=== PATIENT | female | born 1960 | race Caucasian/White ===

== ENCOUNTER → 2016-05-03 | Outpatient (CLI) | payer BC ==
--- NOTE | 2016-05-03 19:01 | P.BASOAP ---
Subjective Principal diagnosis: Panniculitis Patient is well-known to our service. She underwent prior weight loss surgery by myself. She was last seen 6 months ago. She has had excellent weight loss. She is having trouble now with inflammatory changes beneath the pannus. She currently is using Gold Mcintyre with some relief. She has significant itching. She is still smoking. She was seeing me for possible panniculectomy. Objective - Vital Signs Vital signs: Vital Signs Temp 98.2 F 05/03/16 13:47 Pulse 76 05/03/16 13:47 Resp 16 05/03/16 13:47 BP 119/76 05/03/16 13:47 Pulse Ox Intake & Output 05/02/16 05/03/16 05/03/16 18:59 06:59 18:59 Weight 72.15 kg - Exam Abdomen: Small to moderate-sized pannus noted, some skin irritation with erythema without ulceration present Assessment/Plan (1) Panniculitis Narrative/Plan: The patient was informed that I do not perform panniculectomy. She and I discussed the indications for surgery the associated risks. Contact numbers were provided for both plastic surgery and general surgery to discuss this further. She will continue to work on her smoking cessation. She will continue goal Mcintyre for now. Plan: Date: 05/03/16 Initial Weight: 108.862 kg Initial BMI: 38.7 Current Weight: 72.15 kg Current BMI: 25.7 Type of Surgery: Total Volume in Band: Previous Volume: Volume Removed: Volume Added: Band Size:
== END | disposition home or self-care (01) ==
CPT/HCPCS: 99211

== ENCOUNTER → 2018-05-22 | Outpatient (CLI) | payer BC ==
--- NOTE | 2018-05-22 16:07 | BD ---
EXAMINATION TYPE: Axial Bone Density DATE OF EXAM: 05/22/2018 COMPARISON: NONE CLINICAL HISTORY: Height: 5 FT 5 1/2 IN Weight: 163 FRAX RISK QUESTIONS: History of Fracture in Adulthood: YES Secondary Osteoporosis: 3. Menopause before 45: ABLASION AGE 42 NO SYMPTOMS Current Tobacco Use: YES RISK FACTORS HISTORY OF: History of Wrist Fracture: RT WRIST When: 8 YRS AGO Surgery to Spine/Hip(right/left)/Wrist (right/left): RT WRIST When: 8 YRS AGO Active: YES Postmenopausal woman: ABLASION AGE 42 MEDICATIONS: Osteoporosis Medications: YES Which medication: RECLAST How Lon YRS Additional Medications: RECLAST,VALACYCLOVIR,OXCARBAZEPINE,BIOTIN, CALTRATE Additional History: BARIATRIC SURG 5 YEARS AGO EXAM MEASUREMENTS: Bone mineral densitometry was performed using the Nimaya System. Bone mineral density as measured about the Lumbar spine is: ----- L1-L4(G/cm2): 1.217 T Score Values are as follows: ----- L2: -0.1 ----- L3: 1.6 ----- L4: 0.1 ----- L1-L4: 0.3 BASELINE Bone mineral density about the R hip (g/cm2): 0.817 Bone mineral density about the L hip (g/cm2): 0.835 T Score values are as follows: -----R Neck: -1.6 -----L Neck: -1.5 -----R Total: -1.4 -----L Total: -1.2 BASELINE IMPRESSION: Osteopenia (T Score between -2.5 and -1). There is slightly increased risk of fracture and the patient may be considered for treatment. Re-Screen 2-5 years. NOTE: T-SCORE=SD OF THE YOUNG ADULT MEAN.
--- NOTE | 2018-05-23 10:09 | MM ---
Reason for exam: screening (asymptomatic). Last mammogram was performed 9 years and 1 month ago. History: Family history of breast cancer in 2 aunts. Took hormonal contraceptives for 10 years. Physical Findings: A clinical breast exam by your physician is recommended on an annual basis and results should be correlated with mammographic findings. MG 3D Screening Mammo W/Cad Bilateral CC and MLO view(s) were taken. Prior study comparison: November 01, 2015, mammogram, performed at [facility]. July 06, 2014, mammogram, performed at [facility]. May 04, 2009, bilateral digital screening mammogram. July 16, 2007, bilateral digital screening mammogram. There are scattered fibroglandular densities. Stable benign calcifications. There is no discrete abnormality. No significant changes when compared with prior studies. ASSESSMENT: Benign, BI-RAD 2 RECOMMENDATION: Routine screening mammogram of both breasts in 1 year.
== END ==
LOC: RADMAMWWP 08:42
PROVIDERS: ATTEND Family Medicine
DX: Z12.31 Encounter for screening mammogram for malignant neoplasm of breast (principal); M85.80 Other specified disorders of bone density and structure, unspecified site
CPT/HCPCS: 77063; 77067; 77080

== ENCOUNTER → 2018-11-06 | Outpatient (CLI) | payer BC ==
[~2018-11-06] MED LIST: SODIUM CHLORIDE 0.9% 500 ML 500 ML in EMPTY BAG 1 BAG IV PRN; ZOLEDRONIC ACID 5 MG in SODIUM CHLORIDE 0.9% 100 ML IV NR
[2018-11-06 08:27] VITALS: BP 95/57; PULSE 80; RESP 16; TEMP 98
== END | disposition home or self-care (01) ==
LOC: PROCWHC3 07:55
PROVIDERS: ATTEND Family Medicine
DX: M81.0 Age-related osteoporosis without current pathological fracture (principal)
CPT/HCPCS: 96365; J3489

== ENCOUNTER → 2019-06-03 | Outpatient (CLI) | payer BC ==
[2019-06-03 13:30] VITALS: BP 125/86; PULSE 85; TEMP 97.9; BMI 25.8
--- NOTE | 2019-06-03 13:40 | P.HPBAR ---
Bariatric H&P - History & Physicial H&P Date: 06/03/19 History & Physicial: Visit/CC: panniculectomy consult Patient initial contact: Initial weight: 108.862 kg Initial weight in pounds: 240.00 Height: 5 ft 6 in Initial BMI: 38.7 Last weight: Current weight: 72.711 kg Current weight in pounds: 160.30 Current BMI: 25.8 Stuart body weight (based on NIH guidelines): 58.967 kg Excess body weight loss: 72.4% The patient is a 58 year-old F who presents for Bariatric Assessment. HPI: Highest wegiht of 268 pounds. She is status post sleeve gastrectomy in 2014. She is 5 years. She reports panniculitis worse in the summer time. She cannot wear pants as a result of her pannus. She has chronic itching of her skin of the pannus. She reports occassional back pain from her pannus. She uses Gold gandara to try to help her symptoms. She has not seen a noc analyst. Her lowest weight was 138 pounds was 4 years. No oral medications for her skin. She was prescribed creams for her skin. She reports 4 years of chronic panniculitis. She reports epigastric pain for 3 months. ABDOMEN: Pannus over 5 cm over the pubis. Hyperpigmentation of the her skin pannus reviewed. ASSESSMENT: 1. Panniculitis PLAN: 1. Recommend Nystatin powder 2. Systems Software Engineer 3. Nicotine testing recommend 4. Upper endoscopy 5. Bariatric labs Past Medical History Past Medical History: GERD/Reflux Additional Past Medical History / Comment(s): FX RT HUMERUS-12/31/14 History of Any Multi-Drug Resistant Organisms: None Reported Past Surgical History: Bariatric Surgery, Bladder Surgery, Section, Cholecystectomy, Orthopedic Surgery, Tonsillectomy, Tubal Ligation, Uterine Ablation Additional Past Surgical History / Comment(s): GASTRIC SLEEVE 03/2014. ORIF RT WRIST AND ANDLE W/PINS AND SCREWS. BLADDER SLING. FATTY BENIGN TUMOR REMOVED FROM BACK. COLONOSCOPY. EGD Past Anesthesia/Blood Transfusion Reactions: Motion Sickness, Postoperative Nausea & Vomiting (PONV) Smoking Status: Current every day smoker - Past Family History Mother Family Medical History: No Reported History Surgical - Exam Vital Signs Temp Pulse BP 97.9 F 85 125/86 06/03/19 13:26 06/03/19 13:26 06/03/19 13:26 Bariatric Checklist Checklist: Plan: Checklist: EGD: 1. Hiatal hernia: 2. H. Pylori: HgbA1c: Vitamin D: Smoking: Current every day smoker Primary care physician referral: SARITA Psychiatry clearance: Cardiology clearance: Sleep study: Diet journal: VTE risk score: VTE risk level: Rehab needs at discharge:
== END | disposition home or self-care (01) ==
LOC: BARWHC3 12:39
PROVIDERS: ATTEND Surgery Plastic and Reconstructive Surgery
DX: Z48.815 Encounter for surgical aftercare following surgery on the digestive system (principal); M79.3 Panniculitis, unspecified; R10.13 Epigastric pain; F17.200 Nicotine dependence, unspecified, uncomplicated; Z98.84 Bariatric surgery status; Z90.49 Acquired absence of other specified parts of digestive tract; Z98.51 Tubal ligation status; Z98.890 Other specified postprocedural states
CPT/HCPCS: 99211

== ENCOUNTER → 2019-06-29 | Outpatient (CLI) | payer BC ==
--- NOTE | 2019-06-30 10:35 | MM ---
Reason for exam: screening (asymptomatic). Last mammogram was performed 1 year and 1 month ago. History: Family history of breast cancer in 2 aunts. Took hormonal contraceptives for 10 years. Physical Findings: A clinical breast exam by your physician is recommended on an annual basis and results should be correlated with mammographic findings. MG 3D Screening Mammo W/Cad Bilateral CC and MLO view(s) were taken. Prior study comparison: May 22, 2018, bilateral MG 3d screening mammo w/cad. November 01, 2015, mammogram, performed at [facility]. There are scattered fibroglandular densities. There are benign appearing round calcifications bilaterally. There is chronic nodularity bilaterally. There is no discrete abnormality. ASSESSMENT: Benign, BI-RAD 2 RECOMMENDATION: Routine screening mammogram of both breasts in 1 year.
== END | disposition home or self-care (01) ==
LOC: RADMAMWWP 12:30
PROVIDERS: ATTEND Family Medicine
DX: Z12.31 Encounter for screening mammogram for malignant neoplasm of breast (principal)
CPT/HCPCS: 77063; 77067

== ENCOUNTER → 2019-10-14 | Outpatient (CLI) | payer BC ==
[2019-10-14 11:32] LABS: HCT 39.8 % (34.0-46.0); HGB 13.7 gm/dL (11.4-16.0); MCH 34.4 pg (25.0-35.0); MCHC 34.5 g/dL (31.0-37.0); MCV 99.7 fL (80.0-100.0); Mean Platelet Volume 7.3; Platelet Count 242 k/uL (150-450); RBC 3.99 m/uL (3.80-5.40); RDW 11.7 % (11.5-15.5); WBC 3.5 k/uL (3.8-10.6)
[2019-10-14 11:44] LABS: Partial Thromboplastin Time 22.3 sec (22.0-30.0); Prothrombin Time 10.2 sec (9.0-12.0)
[2019-10-14 18:12] LABS: Hemoglobin A1C 5.3 % (4.0-6.0)
[2019-10-14 20:38] LABS: % Iron Saturation 31.53 (12.00-45.00); African American GFR (CKD) 117.3 (60.0-200.0); Albumin 4.3 g/dL (3.80-4.90); Albumin/Globulin Ratio 2.53 (1.60-3.17); Anion Gap 8.9 mmol/L (4.00-12.00); Calcium 9.1 mg/dL (8.7-10.3); Carbon Dioxide 27.1 mmol/L (21.6-31.8); Chol/HDL Ratio 2.4; Globulin 1.7 g/dL (1.6-3.3); LDL Cholesterol,Calculated 94.8 mg/dL (0.0-131.0); Magnesium 1.9 mg/dL (1.5-2.4); Non-African American GFR(CKD) 101.2 (60.0-200.0); Potassium 4.4 mmol/L (3.5-5.5); Total Bilirubin 0.4 mg/dL (0.3-1.2); VLDL Calculation 14.2 mg/dL (5.00-40.00)
[2019-10-14 20:46] LABS: Ferritin 49.2 ng/mL (10.0-291.0)
[2019-10-14 21:03] LABS: Folate, Serum 19.8 ng/mL
[2019-10-15 11:44] LABS: Zinc, Serum 76 ug/dL (60-130)
[2019-10-16 07:27] LABS: Vitamin A 58 ug/dL (38-106)
[2019-10-16 08:00] LABS: Vit B1(Thiamine) 63 ug/L (38-122)
[2019-10-16 16:04] LABS: Anabasine Urine <2.0 ng/mL (<2.0)
[2019-10-17 01:28] LABS: Selenium 88 mcg/L (63-160)
== END | disposition home or self-care (01) ==
LOC: LABWHC1 10:25
PROVIDERS: ATTEND Surgery Plastic and Reconstructive Surgery
DX: E21.1 Secondary hyperparathyroidism, not elsewhere classified (principal); E89.1 Postprocedural hypoinsulinemia; D50.9 Iron deficiency anemia, unspecified; K90.9 Intestinal malabsorption, unspecified; E55.9 Vitamin D deficiency, unspecified; K74.1 Hepatic sclerosis; N19 Unspecified kidney failure; K50.90 Crohn's disease, unspecified, without complications; E66.01 Morbid (severe) obesity due to excess calories
CPT/HCPCS: 36415; 80053; 80061; 80323; 82306; 82525; 82607; 82728; 82746; 83036; 83540; 83550; 83735; 83970; 84100; 84134; 84255; 84425; 84443; 84590; 84630; 85027; 85610; 85730; 93005

== ENCOUNTER → 2019-11-05 | Outpatient (CLI) | payer BC ==
--- NOTE | 2019-11-05 15:05 | US ---
EXAMINATION TYPE: US kidneys/renal and bladder DATE OF EXAM: 11/05/2019 COMPARISON: NONE CLINICAL HISTORY: N30.20Cystitis. uti's this years EXAM MEASUREMENTS: Right Kidney: 8.4 x 4.2 x 3.9cm Left Kidney: 9.2 x 3.9 x 6.1cm Right Kidney: No hydronephrosis or masses seen Left Kidney: No hydronephrosis or masses seen Bladder: wnl Bilateral Jets seen: no There is no evidence for hydronephrosis at this point in time. No nephrolithiasis is seen. No vangie s are identified. The urinary bladder is anechoic. IMPRESSION: Ureteral jets were not evident. Urinary bladder not well distended.
== END | disposition home or self-care (01) ==
LOC: RADUSWWP 14:37
PROVIDERS: ATTEND Urology
DX: N30.20 Other chronic cystitis without hematuria (principal); Z88.5 Allergy status to narcotic agent; Z91.041 Radiographic dye allergy status
CPT/HCPCS: 76770

== ENCOUNTER → 2019-11-19 | Outpatient (CLI) | payer BC ==
--- NOTE | 2019-11-19 12:38 | FL ---
Barium swallow HISTORY: Dysphagia Patient was given high density barium to drink. Swallowing mechanism is normal. There is no evident aspiration. There is no extrinsic or intrinsic es ophageal lesion. Some tertiary esophageal contractions were noted incidentally. Patient shows postop change status post gastric sleeve. There is redundancy of the distal esophagus, redundant distal esop hagus or portion of the stomach remnant may be present within hiatal hernia, there is no obstruction to flow, is no leak. 45 seconds fluoroscopy time, 143 images obtained IMPRESSION: There is a redundant appearance, probable hiatal hernia with portion of the stomach withi n the lower chest. CT scan may be of benefit for further evaluation.
== END | disposition home or self-care (01) ==
LOC: RADUSWWP 10:52
PROVIDERS: ATTEND Surgery Plastic and Reconstructive Surgery
DX: R93.3 Abnormal findings on diagnostic imaging of other parts of digestive tract (principal); R13.10 Dysphagia, unspecified
CPT/HCPCS: 74220

== ENCOUNTER → 2019-12-09 | Outpatient (CLI) | payer BC ==
--- NOTE | 2019-12-09 15:57 | CT ---
EXAMINATION TYPE: CT chest abdomen w con DATE OF EXAM: 12/09/2019 COMPARISON: None. HISTORY: Pt c/o burning sensation when swallowing. Bariatric sx 6 years ago. Diverticulitis. Ins only approved abdomen CT DLP: 796 mGycm. Automated Exposure Control for Dose Reduction was Utilized. CONTRAST: CT scan of the thorax and abdomen are performed with oral and with IV Contrast, patient injected with 100 mL of Isovue 300. FINDINGS: LUNGS: The lungs are grossly clear, there is no concerning parenchymal mass or nodule identified. T here is no pleural effusion or pneumothorax seen. The tracheobronchial tree is patent. MEDIASTINUM: There are no greater than 1 cm hilar or mediastinal lymph nodes. No cardiomegaly or pe ricardial effusion is seen. LIVER/GB: Cholecystectomy clips are present. PANCREAS: No significant abnormality is seen. SPLEEN: No significant abnormality is seen. ADRENALS: No significant abnormality is seen. KIDNEYS: No significant abnormality is seen. BOWEL: Oral contrast does not reach colonic level. Surgical changes from gastric sleeve are identifie d. There is hiatal hernia containing the gastric sleeve along with mesenteric fat and tiny mesenteric vessels with abnormal twisting of the sleeve noted. Surgical sutures extend below diaphragm into the upper abdomen. No suspicious small or large bowel dilatation is present. In the region of the second portion of duodenum there is heterogeneous rim-enhancing 2.2 x 1.8 cm ovoid lesion coronal image 40 that appears maybe in the pancreaticoduodenal groove worrisome for abnormal mass or adenopathy. Mass effect on the common bile duct which is deviated centrally is seen. No biliary dilatation noted. Mild prominence of colonic fecal material is present LYMPH NODES: No additional greater than 1 cm abdominal lymph nodes are appreciated. OSSEOUS STRUCTURES: Slight underlying scoliotic curvature OTHER: No significant additional abnormality is seen. IMPRESSION: 1. Suspicious oval 2.2 cm rim enhancing or hyperdense solid mass in the pancreaticoduodenal groove. Consider hypervascular adenopathy or neoplasm. Correlate clinically. 2. Hiatal hernia containing majority of gastric sleeve which is abnormally twisted but shows no evide nce of obstruction. Mild diffuse colonic fecal stasis noted.
== END | disposition home or self-care (01) ==
LOC: RADCTMAIN 14:30
PROVIDERS: ATTEND Surgery Plastic and Reconstructive Surgery
DX: K86.89 Other specified diseases of pancreas (principal); K44.9 Diaphragmatic hernia without obstruction or gangrene; K59.8 Other specified functional intestinal disorders; R91.8 Other nonspecific abnormal finding of lung field; Z87.891 Personal history of nicotine dependence
CPT/HCPCS: 71260; 74160; Q9967

== ENCOUNTER 2020-01-25 06:08 | Inpatient (IN) | payer BC ==
--- NOTE | 2020-01-25 03:46 | P.GSHP ---
History of Present Illness H&P Date: 01/25/20 CHIEF COMPLAINT: Paraesophageal hiatal hernia with gastroesophageal reflux disease. HISTORY OF PRESENT ILLNESS: The patient is a 59-year-old female who presents severe gastroesophageal reflux disease with paraesophageal hiatal hernia. She has completed upper endoscopy workup. Now she presents for surgical intervention. PAST MEDICAL HISTORY: Please see list. PAST SURGICAL HISTORY: Please see list. MEDICATIONS: Please see list. ALLERGIES: Please see list. SOCIAL HISTORY: No illicit drug use FAMILY HISTORY: No reports of Crohn disease or ulcerative colitis. REVIEW OF ORGAN SYSTEMS: CONSTITUTIONAL: No reports of fevers or chills. GI: Denies any blood in stools or constipation. PHYSICAL EXAM: VITAL SIGNS: Stable GENERAL: Well-developed pleasant and in no acute distress. HEENT: No scleral icterus. Extraocular movements grossly intact. Moist buccal mucosa. NECK: Supple without lymphadenopathy. CHEST: Unlabored respirations. Equal bilateral excursions. CARDIOVASCULAR: Regular rate and rhythm. Distal 2+ pulses. ABDOMEN: Soft, nondistended. No peritoneal signs. MUSCULOSKELETAL: No clubbing, cyanosis, or edema. SKIN: Well-perfused. Good skin turgor. ASSESSMENT: 1. Diaphragmatic paraesophageal hiatal hernia with severe gastroesophageal reflux disease. PLAN: 1. Recommend proceeding with a robotic paraesophageal hiatal hernia with possible mesh. 2. Benefits and risks of surgical intervention was discussed including possibility of open technique. 3. Inpatient hospitalization recommended of 2 nights 4. DVT prophylaxis. 5. Antibiotic prophylaxis. Past Medical History Past Medical History: GERD/Reflux Additional Past Medical History / Comment(s): FX RT HUMERUS-12/31/14 History of Any Multi-Drug Resistant Organisms: None Reported Past Surgical History: Bariatric Surgery, Bladder Surgery, Section, Cholecystectomy, Orthopedic Surgery, Tonsillectomy, Tubal Ligation, Uterine Ablation Additional Past Surgical History / Comment(s): GASTRIC SLEEVE, ORIF RT WRIST AND ANKLE W/PINS AND SCREWS. BLADDER SLING, FATTY BENIGN TUMOR REMOVED FROM BACK, EGD, colonocopy Past Anesthesia/Blood Transfusion Reactions: Motion Sickness, Postoperative Nausea & Vomiting (PONV) Past Psychological History: Bipolar Smoking Status: Former smoker Past Alcohol Use History: Occasional Additional Past Alcohol Use History / Comment(s): QUIT SMOKING 12/2019, smoked on and off for 44 years Past Drug Use History: None Reported Additional Drug Use History / Comment(s): occ CBD oil - Past Family History Mother Family Medical History: No Reported History Medications and Allergies Home Medications Medication Instructions Recorded Confirmed Type Biotin 5,000 mg PO TID 01/06/15 01/20/20 History Calcium Carbonate/Vitamin D3 1 tab PO DAILY 01/06/15 01/20/20 History [Calcium 600-Vit D3 400 Tablet] Cholecalciferol [Vitamin D3 (25 5,000 unit PO DAILY 01/06/15 01/20/20 History Mcg = 1000 Iu)] Multivitamins, Thera [Multivitamin 1 each PO DAILY 01/06/15 01/20/20 History (formulary)] valACYclovir HCL [Valacyclovir] 500 mg PO DAILY 01/06/15 01/20/20 History Polyethylene Glycol 3350 [Miralax] 17 gm PO DAILY PRN #527 gm 12/16/19 01/20/20 Rx Albuterol Sulfate [Ventolin HFA] 1 - 2 puff INHALATION DIRECTED 01/20/20 01/20/20 History PRN Cannabidiol (Cbd) [Epidiolex] 0 mg PO DIRECTED 01/20/20 01/20/20 History Nystatin 100,000 Unit/gm Powd 1 applic TOPICAL BID PRN 01/20/20 01/20/20 History [Mycostatin Powder] OXcarbazepine [Trileptal] 300 mg PO BID 01/20/20 01/20/20 History Omeprazole [PriLOSEC] 20 mg PO AC-BRKFST 01/20/20 01/20/20 History Vitamin B(Dose Unknown) 1 tab PO TU 01/20/20 01/20/20 History Allergies Allergy/AdvReac Type Severity Reaction Status Date / Time hydrocodone [From Badger] AdvReac Rapid Verified 01/20/20 08:46 Heart Rate orange AdvReac Rash/Hives Verified 01/20/20 08:46 ORANGE DYE AdvReac BLISTERS Uncoded 01/12/20 09:37 TO INSIDE AND OUTSIDE OF MOUTH
[~2020-01-25 06:08] MED LIST changes: +CHLORHEXIDINE GLUCONATE 15 ML CUP MUCOUS MEM ONE; +HYDROmorphone 0.5 MG/0.5 ML SYRINGE IVP PRN; +LACTATED RINGERS 1,000 ML IV SCH; +LIDOCAINE 1% (10MG/ML) FOR IV START INTRADERMA PRN; +MIDAZOLAM 2 MG/2 ML VIAL IV PRN; +PANTOPRAZOLE 40 MG/10 ML VIAL IV ONE; -SODIUM CHLORIDE 0.9% 500 ML 500 ML in EMPTY BAG 1 BAG IV PRN; -ZOLEDRONIC ACID 5 MG in SODIUM CHLORIDE 0.9% 100 ML IV NR
[2020-01-25] MEDS ORDERED: DEXAMETHASONE SOD PHOSPHATE 10 MG/ML 1 ML VIAL IV ONE (07:00)
[2020-01-25] MEDS ORDERED: ONDANSETRON 4 MG/2 ML VIAL ONE (07:07)
[2020-01-25 07:13] LABS: Basophils % (A) 1 %; Eosinophils # (A) 0.2 k/uL (0-0.7); Eosinophils % (A) 5 %; HCT 43.7 % (34.0-46.0); HGB 14.6 gm/dL (11.4-16.0); Lymphocytes # (A) 1.3 k/uL (1.0-4.8); Lymphocytes % (A) 40 %; MCH 32.1 pg (25.0-35.0); MCHC 33.5 g/dL (31.0-37.0); Mean Platelet Volume 7.2; Monocytes # (A) 0.3 k/uL (0-1.0); Monocytes % (A) 8 %; Neutrophils # (A) 1.4 k/uL (1.3-7.7); Neutrophils % (A) 43 %; Platelet Count 281 k/uL (150-450); RBC 4.55 m/uL (3.80-5.40); RDW 11.7 % (11.5-15.5); WBC 3.3 k/uL (3.8-10.6)
[2020-01-25] MEDS ORDERED: SUCCINYLCHOLINE CHLORIDE 100 MG/5 ML SYR IV ONE (07:25)
[2020-01-25] MEDS ORDERED: WATER FOR INJECTION, STERILE 10 ML VIAL IV ONE (07:25)
[2020-01-25] MEDS ORDERED: fentaNYL (PF) 50 MCG/ML 2 ML AMP ONE (07:25)
[2020-01-25] MEDS ORDERED: LIDOCAINE 1% INJ 10MG/ML (20 ML MDV) ONE (07:25)
[2020-01-25] MEDS ORDERED: NEOSTIGMINE 1 MG/ML 10 ML VIAL ONE (07:25)
[2020-01-25] MEDS ORDERED: GLYCOPYRROLATE 0.2 MG/ML 2 ML VIAL ONE (07:25)
[2020-01-25] MEDS ORDERED: PHENYLEPHRINE-0.9% NACL SYG 1 MG/10 ML SYRINGE ONE (07:25)
[2020-01-25] MEDS ORDERED: MIDAZOLAM 2 MG/2 ML VIAL ONE (07:25)
[2020-01-25] MEDS ORDERED: ePHEDrine SULFATE/0.9% NACL/PF 50 MG/5 ML SYRINGE IV ONE (07:25)
[2020-01-25] MEDS ORDERED: PROPOFOL 10 MG/ML 20 ML VIAL IV ONE (07:25)
[2020-01-25] MEDS ORDERED: ROCURONIUM 10 MG/ML (5 ML VIAL) IV ONE (07:25)
[2020-01-25] MEDS ORDERED: SCOPOLAMINE 1.5MG/72HR PATCH TRANSDERM ONE (07:30)
[2020-01-25 07:31] LABS: ALT 16 U/L (4-34); AST 42 U/L (14-36); African American GFR (CKD) >90 (>60 ml/min/1.73 sqM); Albumin 4.4 g/dL (3.5-5.0); Alkaline Phosphatase 96 U/L (38-126); Anion Gap 7 mmol/L; Blood Urea Nitrogen 20 mg/dL (7-17); Calcium 9.5 mg/dL (8.4-10.2); Carbon Dioxide 23 mmol/L (22-30); Chloride 103 mmol/L (98-107); Glucose 94 mg/dL (74-99); Non-African American GFR(CKD) >90 (>60 ml/min/1.73 sqM); Sodium 133 mmol/L (137-145); Total Bilirubin 1.1 mg/dL (0.2-1.3); Total Protein 6.9 g/dL (6.3-8.2)
[2020-01-25 07:34] LABS: Potassium 5.1 mmol/L (3.5-5.1)
[2020-01-25] MEDS ORDERED: LIDOCAINE 1%-EPI 1:100,000 20 ML VIAL SQ ONE (08:00)
[2020-01-25] MEDS ORDERED: LACTATED RINGERS 1,000 ML IV ONE (09:04)
[2020-01-25] MEDS ORDERED: ONDANSETRON 4 MG/2 ML VIAL IVP ONE (10:17)
[2020-01-25] MEDS ORDERED: NALOXONE 0.4 MG/ML 1 ML VIAL IV PRN (10:21)
[2020-01-25] MEDS ORDERED: PROMETHAZINE INJ 25 MG/ML 1 ML VIAL IVPB ONE (10:42)
[2020-01-25] MEDS ORDERED: DEXAMETHASONE SOD PHOSPHATE 10 MG/ML 1 ML VIAL IV PRN (11:00)
--- NOTE | 2020-01-25 11:08 | P.OP ---
Date of Procedure: 01/25/20 Description of Procedure: SURGEON: JOEL العلي MD PREOPERATIVE DIAGNOSES: 1. Gastroesophageal reflux disease, severe 2. Paraesophageal hiatal hernia, midline 3. History of sleeve gastrectomy 4. Epigastric abdominal pain 5. Dysphagia 6. Bipolar disorder POSTOPERATIVE DIAGNOSES: 1. Paraesophageal hiatal hernia, midline, incarcerated and recurrent, 7 x 5 cm, type III, with obstruction and gastric volvulus 2. Gastroesophageal reflux disease, severe 3. History of sleeve gastrectomy 4. Epigastric abdominal pain 5. Dysphagia 6. Bipolar disorder 7. Peritoneal adhesions OPERATION: 1. Robotic-assisted da Xiao Xi laparoscopic reduction of gastric volvulus and repair of recurrent incarcerated paraesophageal hiatal hernia, 7 x 5 cm, with [place] Biopatch A 8 x 8 cm. 2. Robotic-assisted da Xiao Xi laparoscopic extensive lysis of adhesions over 1 hour 3. Intraoperative esophagogastroscopy 4. Placement of 56-Chinese bougie ANESTHESIA: General with local anesthetic. ESTIMATED BLOOD LOSS: 5 mL Pathology: None COMPLICATIONS: None. FINDINGS: 1. Thoracic length 15 cm. 2. Port placed 15 cm distal. 3. Incarcerated upper pole of the stomach within the mediastinum with moderate dissection performed with resection of mediastinal hernia sac, type III paraesophageal hiatal hernia 4. 7 cm paraesophageal incarcerated diaphragmatic hiatal hernia with gastric Follis in obstruction 5. [place] Biopatch A onlay mesh placed. 6. Identified previous hiatal hernia repair with retained suture consistent with recurrent incarcerated hiatal hernia 7. Reduction of incarcerated 9 cm superior pole of stomach from previously gastrectomy 8. Confirmed pre-existing gastric stenosis along sleeve gastrectomy and angularis incisura 9. GE junction at 39 cm from the incisors 10. Intra-abdominal esophageal length over 2 cm obtained INDICATIONS: The patient is a 59-year-old female who presents with epigastric abdominal pain, history of sleeve gastrectomy and severe gastroesophageal reflux recalcitrant to medical therapy with a symptomatic diaphragmatic hiatal hernia. Preoperative workup including upper endoscopy demonstrated hiatal hernia with incarceration and gastric volvulus. Given the severity of her symptoms, she had elected for surgical intervention. Benefits and risks including bleeding, infection, recurrence, dysphagia, injury to the lung, need for further surgery was described at length. Informed consent was obtained. DESCRIPTION: The patient was brought into the operating room and placed in supine position. Preoperatively she had received Lovenox subcutaneously for DVT prophylaxis. After general induction, the abdomen was prepped and draped in standard sterile fashion. The patient had previously voided prior to coming to the operating room. Ioban draping was placed along the abdomen. A timeout protocol was confirmed with the surgical team, for which the patient's name, procedure to be performed including DVT prophylaxis with bilateral SCDs, and preoperative antibiotics were also confirmed. A robotic da Xiao Xi system was prepped and primed. At 15 cm from the xiphoid to just below the umbilicus, proposed port sites were marked with indelible marker along the left axillary line, left mid-clavicular line with each ports were marked 10 cm from each other. A 5 mm 0 degrees laparoscopic trocar entry was performed along the left upper quadrant. The abdomen was insufflated to 15 mmHg pressure was tolerated well. Diagnostic l aparoscopy demonstrated no injury to bowel, viscera. Next, one 8 mm robotic port was placed along the right upper abdomen. An 8-mm port was were placed along the left lateral abdominal wall. The camera 8-mm port was maintained along the epigastrium. Another 12 mm port was placed along the left upper abdominal wall after exchanging the 5 mm port. Please note that the ports were placed at least 20 cm away from the target anatomy. Care was taken to check that each robotic arm were safely away from collision with the bed or the patient. The patient was repositioned in reverse Trendelenburg position at 21-degrees after lowering the bed. The robot was docked above the right side of the patient. Using a grasper for arm 3, a grasper for arm 1, including vessel sealer for arm 2, the robotic system was docked and primed as described. Instruments were interchanged by the educational program assistant. I had sat at the console. Initial attention was brought to the severe peritoneal adhesions involving the greater omentum to the anterior abdominal wall of the epigastrium including midline and right including left upper quadrant. Using combination blunt dissection including vessel sealer for sharp dissection, extensive lysis of adhesions over 1 hour was performed from her previous hiatal hernia repair. Dissection was carried to the hiatus circumferentially using vessel sealer including blunt dissection. Previous retained suture was found along the hiatus consistent with a prior repair. The hiatus hernia recurred anteriorly including a retained sac acting as a lead point for recurrence. To prevent any injury to the esophagus including proximal stomach, I performed an intraoperative upper endoscopy with the scope entering along the posterior oropharynx into the distal stomach and left in place as a bougie. The remnant gastrohepatic ligament was cleaved using a vessel sealer. Next, the phrenoesophageal ligament was mobilized and the distal esophagus was mobilized circumferentially. An incarcerated hernia sac was found into the mediastinum. As a result, deep dissection well into the mediastinum was needed to free the proximal sleeve gastrectomy including distal esophagus consistent with a type III hiatal hernia with a gastric volvulus. The left and right crura was identified. Significant mobilization of the distal to mid esophagus into the mediastinum was performed. Circumferentially, the hernia sac was excised and brought into the abdominal cavity. Care was taken to avoid any gastrotomy to the incarcerated upper pole of the stomach. The measured defect was measured with a ruler consistent with 7 cm axial length and 5 cm in width. After extensive dissection, the distal esophagus at least 2-3 cm was brought into the abdominal cavity. Once the hiatus and crura was dissected, nonabsorbable 2-0 VLOC suture was placed as a running suture to re-approximate the diaphragmatic hiatus posteriorly. To buttress the repair, a [place] Biopatch A was prepared along the back table and cut in a rosenberg-hole fashion as to reinforce the repair as an underlay. The mesh was resized posteriorly placed along the crural repair and tagged using 2-0 VLOC. I went to the head of the bed to perform intraoperative esophagogastroduodenoscopy. An Olympus gastroscope was passed through posterior oropharynx, where the squamocolumnar junction was confirmed at 39 cm from the incisors. The hiatus repair was confirmed as laparoscopic images. The stomach was entered. A confirmed pre-existing gastric stenosis was found at the angularis incisura. The duodenum was intubated without duodenal or peptic ulcers. The scope was temporarily removed and a 56-Chinese bougie was placed to confirm appropriate seal of the hiatal hernia repair. The bougie was left for 1 minute and then removed. The scope was reintroduced within the stomach without evidence of injury. The stomach had been desufflated. No evidence of leaks were found or mucosal defects of the esophagus or stomach. This concluded the endoscopic portion of the case. The robot was undocked from the patient. I re-scrubbed into the case. All instruments and pneumoperitoneum were evacuated from the abdominal cavity. The incisions were cleansed with dilute hydrogen peroxide with saline solution. Incisions were reapproximated using 4-0 Monocryl in an interrupted subcuticular fashion. The 12-mm port site fascial defect was less than 8 mm in size. Exofin glue was applied to the skin. Local anesthetic was infiltrated in all wounds for postop analgesia. Multiple intra-abdominal films were obtained. At the end of the procedure, needle, sponge, and instrument count was verified correct by the surgical scrub tech. The patient had tolerated the procedure well and was taken to the postanesthesia unit in stable condition. Intraoperative films were reviewed with the patient's family who were pleased with the level of care. Console time: 80 minutes COMPLEXITY: Increased complexity of the case secondary to recurrent diaphragmatic hiatal hernia including large leak point with gastric volvulus into the mediastinum requiring extensive lysis of adhesions and reduction of gastric volvulus with obstruction.
[2020-01-25] MEDS: 0.9% NACL WITH KCL 20 MEQ/L 1,000 ML IV SCH ×3 (11:55→18:48)
[2020-01-25] MEDS: KETOROLAC 15 MG/ML 1 ML VIAL IVP SCH ×2 (11:56→17:35)
[2020-01-25] MEDS ORDERED: METOCLOPRAMIDE 5 MG/ML 2 ML VIAL IVP SCH (12:00)
[2020-01-25] MEDS ORDERED: ACETAMINOPHEN IV (For NPO) 1,000 MG in EMPTY BAG 1 BAG IVPB ONE (12:00)
[2020-01-25] MEDS: HYOSCYAMINE ORAL DROPS 1.875 MG/15 ML BOTTLE PO SCH ×2 (12:09→17:34)
[2020-01-25] MEDS: SIMETHICONE 40 MG/0.6 ML DROPS 2,000 MG/30 ML BOTTLE PO SCH ×2 (12:12→18:26)
[2020-01-25] MEDS: ALBUTEROL NEBULIZED 2.5 MG/3 ML INHALATION SCH ×3 (13:20→21:37)
[2020-01-25 14:59] VITALS: BMI 26.9
[2020-01-25] MEDS: ONDANSETRON 4 MG/2 ML VIAL IVP SCH ×2 (16:07→22:02)
[2020-01-25] MEDS: DEXAMETHASONE SOD PHOSPHATE 4 MG/ML 1 ML VIAL IV SCH (17:40)
[2020-01-25] MEDS: OXcarbazepine 300 MG TAB PO SCH (20:09)
[2020-01-26] MEDS: KETOROLAC 15 MG/ML 1 ML VIAL IVP SCH ×5 (00:08→23:31)
[2020-01-26] MEDS: SIMETHICONE 40 MG/0.6 ML DROPS 2,000 MG/30 ML BOTTLE PO SCH ×5 (00:08→23:32)
[2020-01-26] MEDS: HYOSCYAMINE ORAL DROPS 1.875 MG/15 ML BOTTLE PO SCH ×5 (00:08→23:31)
[2020-01-26] MEDS: DEXAMETHASONE SOD PHOSPHATE 4 MG/ML 1 ML VIAL IV SCH ×5 (00:08→23:31)
[2020-01-26] MEDS: ONDANSETRON 4 MG/2 ML VIAL IVP SCH ×4 (04:30→21:50)
[2020-01-26 06:34] LABS: Basophils % (A) 0 %; Eosinophils % (A) 0 %; HCT 38.5 % (34.0-46.0); Lymphocytes # (A) 0.7 k/uL (1.0-4.8); Lymphocytes % (A) 12 %; MCH 33.9 pg (25.0-35.0); MCHC 33.9 g/dL (31.0-37.0); MCV 100.2 fL (80.0-100.0); Mean Platelet Volume 6.9; Monocytes # (A) 0.2 k/uL (0-1.0); Monocytes % (A) 4 %; Neutrophils # (A) 4.9 k/uL (1.3-7.7); Neutrophils % (A) 84 %; Platelet Count 239 k/uL (150-450); RBC 3.84 m/uL (3.80-5.40); RDW 11.8 % (11.5-15.5); WBC 5.8 k/uL (3.8-10.6)
[2020-01-26] MEDS: 0.9% NACL WITH KCL 20 MEQ/L 1,000 ML IV SCH ×2 (06:36→15:36)
[2020-01-26 06:43] LABS: Potassium 4.3 mmol/L (3.5-5.1)
[2020-01-26 06:44] LABS: African American GFR (CKD) >90 (>60 ml/min/1.73 sqM); Anion Gap 4 mmol/L; Blood Urea Nitrogen 8 mg/dL (7-17); Calcium 8.5 mg/dL (8.4-10.2); Carbon Dioxide 26 mmol/L (22-30); Chloride 104 mmol/L (98-107); Magnesium 1.7 mg/dL (1.6-2.3); Non-African American GFR(CKD) >90 (>60 ml/min/1.73 sqM); Phosphorus 3.9 mg/dL (2.5-4.5); Sodium 134 mmol/L (137-145)
[2020-01-26 07:06] LABS: Partial Thromboplastin Time 21.9 sec (22.0-30.0); Prothrombin Time 10.2 sec (9.0-12.0)
[2020-01-26] MEDS: ALBUTEROL NEBULIZED 2.5 MG/3 ML INHALATION SCH ×4 (08:11→20:53)
[2020-01-26] MEDS: PANTOPRAZOLE 40 MG/10 ML VIAL IV SCH (09:47)
[2020-01-26] MEDS: ENOXAPARIN 40 MG/0.4 ML SYRINGE SQ SCH (09:48)
[2020-01-26] MEDS: OXcarbazepine 300 MG TAB PO SCH ×2 (09:50→21:51)
--- NOTE | 2020-01-26 09:58 | FL ---
EXAMINATION TYPE: FL UGI DATE OF EXAM: 01/26/2020 COMPARISON: None HISTORY: Postop hiatal hernia repair TECHNIQUE: A single contrast UGI study is performed with Isovue. FINDINGS: 54 seconds fluoroscopy time 25 mL Isovue Images: 35 Small amount of free air is under the diaphragm. Gastroesophageal junction opens with only minimal hesitancy. No extravasation of contrast is evident. Post gastric sleeve findings appear unremarkable. Proximal small bowel is unremarkable. IMPRESSIONS: 1. No extravasation of contrast post Munir fundoplication. 2. Mild hesitancy passing through the gastroesophageal junction.
--- NOTE | 2020-01-26 13:15 | P.PN ---
Subjective Progress Note Date: 01/26/20 CHIEF COMPLAINT: Paraesophageal hiatal hernia HISTORY OF PRESENT ILLNESS: Patient is postop day #1 status post Robotic- assisted da Xiao Xi laparoscopic reduction of gastric volvulus and repair of recurrent incarcerated paraesophageal hiatal hernia and extensive lysis of adhesions. Patient reports very minimal pain. She denies any nausea or vomiting. She had her upper GI showing no extravasation of contrast and mild hesitancy passing through the gastroesophageal junction. Patient is currently on a bariatric clear diet. She does report feeling that the liquids to seem to get stuck but are able to pass through. She has been up and ambulating. She is using her incentive spirometer. She denies any flatus. She is afebrile. WBC 5.8 hemoglobin is 13. Magnesium 1.7 PHYSICAL EXAM: VITAL SIGNS: Reviewed GENERAL: Well-developed in no acute distress. HEENT: No sclera icterus. Extraocular movements grossly intact. Moist buccal mucosa. Head is atraumatic, normocephalic. Hears conversational speech. No nasal drainage. NECK: Supple without lymphadenopathy. CHEST: Non-labored respirations and equal bilateral excursions. CARDIOVASCULAR: Regular rate with regular rhythm. Palpable 2+ radial pulses. ABDOMEN: Soft. Nondistended. Incisions clean dry and intact MUSCULOSKELETAL: No clubbing or cyanosis. NEUROLOGIC: No focal or lateralizing signs. Cranial nerves II through XII maya ssly intact. PSYCH: Appropriate affect. Alert and oriented to person, place and time. SKIN: Well perfused. Good skin turgor. ASSESSMENT: 1. Paraesophageal hiatal hernia, midline, incarcerated and recurrent, 7 x 5 cm, type III, with obstruction and gastric volvulus 2. Gastroesophageal reflux disease, severe 3. History of sleeve gastrectomy 4. Epigastric abdominal pain 5. Dysphagia 6. Bipolar disorder 7. Peritoneal adhesions 8. Hypomagnesemia PLAN: -Continue bariatric clear diet -Continue IV fluids -Replace magnesium and replete magnesium level in a.m. -Continue pain control medication -GI prophylaxis Protonix and DVT prophylaxis Lovenox Physician Prospect Manager note has been reviewed by physician. Signing provider agrees with the documented findings, assessment, and plan of care. Objective - Vital Signs Vital signs: Vital Signs Temp 98.3 F 01/26/20 12:14 Pulse 91 01/26/20 12:14 Resp 16 01/26/20 12:14 BP 111/74 01/26/20 12:14 Pulse Ox 99 01/26/20 12:14 Intake & Output 01/25/20 01/26/20 01/26/20 18:59 06:59 18:59 Intake Total 1999 1160 Output Total 5 Balance 1994 116 Weight 75.5 kg Intake: IV 1999 Oral 1160 Output: Estimated Blood Loss 5 Other: Voiding Method Toilet # Voids 1 1 1 - Labs CBC & Chem 7: 01/26/20 05:55 01/26/20 05:55 Labs: Abnormal Lab Results - Last 24 Hours (Table) 01/26/20 01/26/20 01/26/20 Range/Units 05:55 05:55 05:55 MCV 100.2 H (80.0-100.0) fL Lymphocytes # 0.7 L (1.0-4.8) k/uL APTT 21.9 L (22.0-30.0) sec Sodium 134 L (137-145) mmol/L
[2020-01-26] MEDS ORDERED: MAGNESIUM SULFATE-D5W PMX 1 GM in DEXTROSE/WATER 1 100ML.BAG IVPB ONE (14:00)
[2020-01-26] MEDS ORDERED: SUMAtriptan succinate 6 MG/0.5 ML VIAL SQ STA (21:09)
[2020-01-26] MEDS ORDERED: ACETAMINOPHEN IV (For NPO) 1,000 MG in EMPTY BAG 1 BAG IVPB ONE (21:09)
[2020-01-26] MEDS ORDERED: SODIUM CHLORIDE 0.9% 1,000 ML IV ONE (21:09)
[2020-01-26] MEDS ORDERED: BUTA/APAP/CAF/COD 50-325-40-30 CAP PO STA (21:10)
[2020-01-27] MEDS: ONDANSETRON 4 MG/2 ML VIAL IVP SCH ×2 (03:38→10:10)
[2020-01-27] MEDS: SIMETHICONE 40 MG/0.6 ML DROPS 2,000 MG/30 ML BOTTLE PO SCH ×2 (06:47→12:16)
[2020-01-27] MEDS: DEXAMETHASONE SOD PHOSPHATE 4 MG/ML 1 ML VIAL IV SCH ×2 (06:47→12:28)
[2020-01-27] MEDS: KETOROLAC 15 MG/ML 1 ML VIAL IVP SCH (06:47)
[2020-01-27] MEDS: HYOSCYAMINE ORAL DROPS 1.875 MG/15 ML BOTTLE PO SCH ×2 (06:47→12:15)
[2020-01-27] MEDS: 0.9% NACL WITH KCL 20 MEQ/L 1,000 ML IV SCH (06:48)
[2020-01-27] MEDS: ALBUTEROL NEBULIZED 2.5 MG/3 ML INHALATION SCH ×2 (08:14→11:33)
[2020-01-27] MEDS: ENOXAPARIN 40 MG/0.4 ML SYRINGE SQ SCH (08:41)
[2020-01-27] MEDS: PANTOPRAZOLE 40 MG/10 ML VIAL IV SCH (08:44)
[2020-01-27] MEDS: OXcarbazepine 300 MG TAB PO SCH (08:50)
[2020-01-27 09:05] VITALS: BP 109/70; PULSE 97; TEMP 97.7
[2020-01-27 10:41] VITALS: RESP 20
--- NOTE | 2020-01-27 13:42 | P.DS ---
Providers Date of admission: 01/25/20 06:08 Expected date of discharge: 01/27/20 Attending physician: Lalitha Washington Primary care physician: Vasile Agar[facility]omen[facility] Course: Discharge diagnosis 1. Paraesophageal hiatal hernia, midline, incarcerated and recurrent, 7 x 5 cm, type III, with obstruction and gastric volvulus 2. Gastroesophageal reflux disease, severe 3. History of sleeve gastrectomy 4. Epigastric abdominal pain 5. Dysphagia 6. Bipolar disorder 7. Peritoneal adhesions 8. Hypomagnesemia resolved Hospital course he patient is a 59-year-old female who presents severe gastroesophageal reflux disease with paraesophageal hiatal hernia. She is status post status post Robotic-assisted da Xiao Xi laparoscopic reduction of gastric volvulus and repair of recurrent incarcerated paraesophageal hiatal hernia and extensive lysis of adhesions and intraoperative esophagogastroscopy. Patient had upper GI completed showing no extravasation and mild hesitancy passing through the gastroesophageal junction. Patient is tolerating diet. She denies any nausea or vomiting. She is passing gas. She has been up and ambulating. And she is afebrile. Patient is stable for discharge. Please refer to chart for any further details. Physician Digital Retoucher note has been reviewed by physician. Signing provider agrees with the documented findings, assessment, and plan of care. Patient Condition at Discharge: Stable Plan - Discharge Summary Discharge Rx Participant: Yes New Discharge Prescriptions: New bisacodyL [Dulcolax] 5 mg PO DAILY PRN #10 tablet. PRN Reason: Constipation Simethicone 40 mg/0.6 ml Drops [Mylicon Drops] 40 mg PO PCHS PRN #30 ml PRN Reason: Gas Ondansetron Odt [Zofran Odt] 4 mg PO Q8HR PRN #9 tab PRN Reason: Nausea Acetaminophen Oral Susp [Tylenol] 1,000 mg PO Q4-6H PRN #400 ml PRN Reason: Pain Continue Cholecalciferol [Vitamin D3 (25 Mcg = 1000 Iu)] 5,000 unit PO DAILY valACYclovir HCL [Valacyclovir] 500 mg PO DAILY Multivitamins, Thera [Multivitamin (formulary)] 1 each PO DAILY Calcium Carbonate/Vitamin D3 [Calcium 600-Vit D3 400 Tablet] 1 tab PO DAILY Biotin 5,000 mg PO TID Polyethylene Glycol 3350 [Miralax] 17 gm PO DAILY PRN #527 gm PRN Reason: Constipation Nystatin 100,000 Unit/gm Powd [Mycostatin Powder] 1 applic TOPICAL BID PRN PRN Reason: Rash Albuterol Sulfate [Ventolin HFA] 1 - 2 puff INHALATION DIRECTED PRN PRN Reason: Shortness Of Breath Cannabidiol (Cbd) [Epidiolex] 0 mg PO DIRECTED Vitamin B(Dose Unknown) 1 tab PO OXcarbazepine [Trileptal] 300 mg PO BID Discontinued Omeprazole [PriLOSEC] 20 mg PO AC-BRKFST Discharge Medication List Biotin 5,000 mg PO TID 01/06/15 [History] Calcium Carbonate/Vitamin D3 [Calcium 600-Vit D3 400 Tablet] 1 tab PO DAILY 01/06/15 [History] Cholecalciferol [Vitamin D3 (25 Mcg = 1000 Iu)] 5,000 unit PO DAILY 01/06/15 [History] Multivitamins, Thera [Multivitamin (formulary)] 1 each PO DAILY 01/06/15 [History] valACYclovir HCL [Valacyclovir] 500 mg PO DAILY 01/06/15 [History] Polyethylene Glycol 3350 [Miralax] 17 gm PO DAILY PRN #527 gm 12/16/19 [Rx] Albuterol Sulfate [Ventolin HFA] 1 - 2 puff INHALATION DIRECTED PRN 01/20/20 [History] Cannabidiol (Cbd) [Epidiolex] 0 mg PO DIRECTED 01/20/20 [History] Nystatin 100,000 Unit/gm Powd [Mycostatin Powder] 1 applic TOPICAL BID PRN 01/20/20 [History] OXcarbazepine [Trileptal] 300 mg PO BID 01/20/20 [History] Vitamin B(Dose Unknown) 1 tab PO TU 01/20/20 [History] Acetaminophen Oral Susp [Tylenol] 1,000 mg PO Q4-6H PRN #400 ml 01/27/20 [Rx] Ondansetron Odt [Zofran Odt] 4 mg PO Q8HR PRN #9 tab 01/27/20 [Rx] Simethicone 40 mg/0.6 ml Drops [Mylicon Drops] 40 mg PO PCHS PRN #30 ml 01/27/20 [Rx] bisacodyL [Dulcolax] 5 mg PO DAILY PRN #10 tablet. 01/27/20 [Rx] Follow up Appointment(s)/Referral(s): Lalitha Washington MD [STAFF PHYSICIAN] - 02/10/20 Patient Instructions/Handouts: Enoxaparin (By injection) Activity/Diet/Wound Care/Special Instructions: NO lifting over 4 pounds in 4 weeks, Feb 23August shower. Notify Physician office for temp over 101.0, increased pain, drainage from incisions. No straws or carbonated beverages. Sugar content should be less than 6 g to avoid dumping syndrome. CRUSH, OPEN, OR CUT TABLETS LARGER THAN A SIZE OF A TIC TAC Follow bariatric diet Discharge Disposition: HOME SELF-CARE
== END 2020-01-27 14:20 | disposition home or self-care (01) | DRG 328 ==
LOC: 2ORMAIN 06:08 → 6PED 10:35
PROVIDERS: ADMIT Surgery Plastic and Reconstructive Surgery; ATTEND Surgery Plastic and Reconstructive Surgery
PROC: 8E0W4CZ Robotic Assisted Procedure of Trunk Region, Percutaneous Endoscopic Approach (ICD-10-PCS; principal; 2020-01-25 07:30)
PROC: 0DN64ZZ Release Stomach, Percutaneous Endoscopic Approach (ICD-10-PCS; principal; 2020-01-25 07:30)
PROC: 0DS64ZZ Reposition Stomach, Percutaneous Endoscopic Approach (ICD-10-PCS; principal; 2020-01-25 07:30)
PROC: 0DJ68ZZ Inspection of Stomach, Via Natural or Artificial Opening Endoscopic (ICD-10-PCS; principal; 2020-01-25 07:30)
PROC: 0BUT4JZ Supplement Diaphragm with Synthetic Substitute, Percutaneous Endoscopic Approach (ICD-10-PCS; principal; 2020-01-25 07:30)
DX: K44.0 Diaphragmatic hernia with obstruction, without gangrene (principal); E83.42 Hypomagnesemia; F31.9 Bipolar disorder, unspecified; K21.9 Gastro-esophageal reflux disease without esophagitis; R13.10 Dysphagia, unspecified; K66.0 Peritoneal adhesions (postprocedural) (postinfection); J45.909 Unspecified asthma, uncomplicated; K31.89 Other diseases of stomach and duodenum; Z79.899 Other long term (current) drug therapy; Z87.891 Personal history of nicotine dependence; Z98.84 Bariatric surgery status; Z87.81 Personal history of (healed) traumatic fracture; Z90.49 Acquired absence of other specified parts of digestive tract; Z87.19 Personal history of other diseases of the digestive system; Z90.89 Acquired absence of other organs; Z87.448 Personal history of other diseases of urinary system; Z87.42 Personal history of other diseases of the female genital tract; Z87.2 Personal history of diseases of the skin and subcutaneous tissue; Z98.51 Tubal ligation status; Z98.890 Other specified postprocedural states; Z98.891 History of uterine scar from previous surgery; Z88.5 Allergy status to narcotic agent; Z91.02 Food additives allergy status
CPT/HCPCS: 74240; 80051; 80053; 82310; 82565; 83735; 84100; 84520; 85025; 85610; 85730; 94640; 94760

== ENCOUNTER → 2020-03-16 | Outpatient (CLI) | payer BC ==
[2020-03-16 13:04] VITALS: BP 131/84; RESP 18; TEMP 98.3
--- NOTE | 2020-03-16 13:46 | P.PN ---
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 She is being placed on Gleevac. She reports being well from her GERD. She has epigastric pain on occasional. She has gained weight. She feels well enough to work. Recommend esophogram Objective - Vital Signs Vital signs: Vital Signs Temp 98.3 F 03/16/20 12:54 Pulse Resp 18 03/16/20 12:54 BP 131/84 03/16/20 12:54 Pulse Ox 85 L 03/16/20 12:54 Intake & Output 03/15/20 03/16/20 03/16/20 18:59 06:59 18:59 Weight 75.931 kg
--- NOTE | 2020-03-16 13:50 | P.PN ---
Progress Note - Text Progress Note Date: 03/16/20 To whom it may concern: Ky Mckeon is under my general surgical care. She may return to work on March 28, 2020 without restrictions. She is doing very well. Regards, Lalitha Washington MD, FACS
== END | disposition home or self-care (01) ==
LOC: BARWHC3 12:48
PROVIDERS: ATTEND Surgery Plastic and Reconstructive Surgery
DX: E66.01 Morbid (severe) obesity due to excess calories (principal); Z68.27 Body mass index [BMI] 27.0-27.9, adult; Z98.84 Bariatric surgery status; R10.13 Epigastric pain; K21.9 Gastro-esophageal reflux disease without esophagitis
CPT/HCPCS: 99211

== ENCOUNTER → 2020-04-11 | Outpatient (CLI) | payer BC ==
[2020-04-11 15:46] LABS: Basophils # (A) 0.1 k/uL (0-0.2); Basophils % (A) 1 %; Eosinophils # (A) 0.2 k/uL (0-0.7); Eosinophils % (A) 3 %; HCT 39.7 % (34.0-46.0); HGB 12.9 gm/dL (11.4-16.0); Lymphocytes % (A) 23 %; MCHC 32.5 g/dL (31.0-37.0); MCV 98.3 fL (80.0-100.0); Mean Platelet Volume 6.9; Monocytes # (A) 0.2 k/uL (0-1.0); Monocytes % (A) 6 %; Neutrophils # (A) 2.8 k/uL (1.3-7.7); Neutrophils % (A) 64 %; Platelet Count 218 k/uL (150-450); RBC 4.04 m/uL (3.80-5.40); RDW 13.3 % (11.5-15.5); WBC 4.3 k/uL (3.8-10.6)
[2020-04-12 00:42] LABS: African American GFR (CKD) 94.9 (60.0-200.0); Albumin 3.9 g/dL (3.80-4.90); Albumin/Globulin Ratio 2.79 (1.60-3.17); Anion Gap 4.8 mmol/L (4.00-12.00); BUN/Creat Ratio 23.75 Ratio (12.00-20.00); Calcium 8.8 mg/dL (8.7-10.3); Carbon Dioxide 29.2 mmol/L (21.6-31.8); Globulin 1.4 g/dL (1.6-3.3); Non-African American GFR(CKD) 81.8 (60.0-200.0); Potassium 4.1 mmol/L (3.5-5.5); Total Bilirubin 0.3 mg/dL (0.2-1.2); Total Protein 5.3 g/dL (6.2-8.2)
== END | disposition home or self-care (01) ==
LOC: LABWHC1 14:15
PROVIDERS: ATTEND Internal Medicine Medical Oncology
DX: C49.A4 Gastrointestinal stromal tumor of large intestine (principal); C18.9 Malignant neoplasm of colon, unspecified
CPT/HCPCS: 36415; 80053; 85025

== ENCOUNTER → 2020-04-25 | Outpatient (CLI) | payer BC ==
[2020-04-25 16:19] LABS: HCT 38.2 % (34.0-46.0); HGB 12.5 gm/dL (11.4-16.0); MCH 32.1 pg (25.0-35.0); MCHC 32.6 g/dL (31.0-37.0); MCV 98.5 fL (80.0-100.0); Mean Platelet Volume 6.9; Platelet Count 228 k/uL (150-450); RBC 3.88 m/uL (3.80-5.40); RDW 13.7 % (11.5-15.5)
[2020-04-25 17:11] LABS: Monocytes # (M) 0.48 k/uL (0-1.0); Neutrophils # (M) 0.12 k/uL (1.3-7.7); Neutrophils % (M) 6 %; Nucleated Red Blood Cells 0 /100 WBC (0-0); Total Cells Counted 100
[2020-04-25 17:15] LABS: Anisocytosis (M) Present
[2020-04-26 04:02] LABS: African American GFR (CKD) 94.9 (60.0-200.0); Albumin/Globulin Ratio 2.67 (1.60-3.17); Anion Gap 9.5 mmol/L (4.00-12.00); BUN/Creat Ratio 27.5 Ratio (12.00-20.00); Calcium 8.7 mg/dL (8.7-10.3); Carbon Dioxide 26.5 mmol/L (21.6-31.8); Globulin 1.5 g/dL (1.6-3.3); Non-African American GFR(CKD) 81.8 (60.0-200.0); Potassium 4.2 mmol/L (3.5-5.5); Total Bilirubin 0.3 mg/dL (0.2-1.2); Total Protein 5.5 g/dL (6.2-8.2)
== END | disposition home or self-care (01) ==
LOC: LABWHC1 15:34
PROVIDERS: ATTEND Internal Medicine Medical Oncology
DX: C49.A4 Gastrointestinal stromal tumor of large intestine (principal)
CPT/HCPCS: 36415; 80053; 85025

== ENCOUNTER → 2020-06-06 | Outpatient (CLI) | payer BC ==
[~2020-06-06] MED LIST changes: -CHLORHEXIDINE GLUCONATE 15 ML CUP MUCOUS MEM ONE; -HYDROmorphone 0.5 MG/0.5 ML SYRINGE IVP PRN; -LACTATED RINGERS 1,000 ML IV SCH; -LIDOCAINE 1% (10MG/ML) FOR IV START INTRADERMA PRN; -MIDAZOLAM 2 MG/2 ML VIAL IV PRN; -PANTOPRAZOLE 40 MG/10 ML VIAL IV ONE; +SODIUM CHLORIDE 0.9% 500 ML 500 ML in EMPTY BAG 1 BAG IV PRN; +ZOLEDRONIC ACID 5 MG in SODIUM CHLORIDE 0.9% 100 ML IV NR
[2020-06-06 13:25] VITALS: BP 119/78; PULSE 84; RESP 16; TEMP 97.6
== END | disposition home or self-care (01) ==
LOC: PROCWHC3 12:51
PROVIDERS: ATTEND Family Medicine
DX: M81.0 Age-related osteoporosis without current pathological fracture (principal)
CPT/HCPCS: 96365; J3489

== ENCOUNTER → 2020-10-20 | Outpatient (CLI) | payer BC | END | disposition home or self-care (01) | LOC: RADMAMWWP 14:44 | PROVIDERS: ATTEND Family Medicine | DX: Z12.31 Encounter for screening mammogram for malignant neoplasm of breast (principal); Z85.038 Personal history of other malignant neoplasm of large intestine; Z80.3 Family history of malignant neoplasm of breast | CPT/HCPCS: 77063; 77067 ==

== ENCOUNTER → 2021-06-06 | Outpatient (CLI) | payer BC ==
[2021-06-06 10:39] VITALS: BP 134/84; PULSE 71; RESP 16; TEMP 98.2
== END ==
LOC: PROCWHC3 10:15
PROVIDERS: ATTEND Family Medicine
DX: M81.0 Age-related osteoporosis without current pathological fracture (principal); F17.200 Nicotine dependence, unspecified, uncomplicated; Z88.5 Allergy status to narcotic agent; Z91.018 Allergy to other foods; Z91.041 Radiographic dye allergy status

== ENCOUNTER → 2021-10-05 | Outpatient (CLI) | payer BC ==
[2021-10-05 11:31] LABS: INR 0.9 (<1.2); Partial Thromboplastin Time 22.4 sec (22.0-30.0); Prothrombin Time 10.2 sec (9.0-12.0)
--- NOTE | 2021-10-05 12:34 | FL ---
EXAMINATION TYPE: FL barium swallow DATE OF EXAM: 10/05/2021 CLINICAL INDICATION: 61-year-old female R13.10, dysphagia. Patient with sleeve placed 7 years ago. 2 prior surgeries for hiatal hernia repair. Now complaining of nausea and sensation of food getting kayden ck. COMPARISON: 12/09/2019 Total Fluoroscopy Time: 1 minute 27 seconds 40 images obtained. FINDINGS: Thin barium was utilized given the patient's history of sleeve gastrectomy. The swallowing mechanism is normal and hypopharyngeal anatomy is preserved. The cervical and thoracic portions have a normal course and caliber. No suspicious mucosal lesion or filling defect seen. Mild tertiary peristaltic waves are noted. There is a small to moderate size hiatal hernia. Moderate gastroesophageal reflux is noted to the mid chest level. Patient is status post sleeve gastrectomy IMPRESSION: 1. Status post sleeve gastrectomy. The patient also indicates a history of 2 prior hiatal hernia repa irs. 2. There is a small to moderate sized, recurrent hiatal hernia with moderate gastroesophageal reflux.
[2021-10-05 15:02] LABS: HCT 38.3 % (37.2-46.3); MCH 32.6 pg (27.0-32.0); MCHC 33.9 g/dL (32.0-37.0); Mean Platelet Volume 11.2 fL (9.5-12.2); NRBC Per 100 WBC 0 /100 WBCS (0.0-0.0); Platelet Count 219 X 10*3/uL (140-440); RBC 3.99 X 10*6/uL (4.10-5.20); RDW 11.7 % (11.5-14.5); WBC 4.26 X 10*3/uL (4.50-10.00)
[2021-10-05 15:41] LABS: % Iron Saturation 22.28 (12.00-45.00); ALT 16 U/L (8-44); AST 18 U/L (13-35); African American GFR (CKD) 115.6 (60.0-200.0); Albumin 4.3 g/dL (3.8-4.9); Albumin/Globulin Ratio 2.26 (1.60-3.17); Alkaline Phosphatase 77 U/L (41-126); BUN/Creat Ratio 23.17 Ratio (12.00-20.00); Blood Urea Nitrogen 13.9 mg/dL (9.0-27.0); Calcium 8.9 mg/dL (8.7-10.3); Carbon Dioxide 21.8 mmol/L (20.0-27.5); Chloride 101 mmol/L (96-109); Ferritin 30.8 ng/mL (10.0-291.0); Globulin 1.9 g/dL (1.6-3.3); Glucose 114 mg/dL (70-110); Iron 86 ug/dL (50-170); Non-African American GFR(CKD) 99.8 (60.0-200.0); Phosphorus 3.1 mg/dL (2.4-5.1); Potassium 4.3 mmol/L (3.5-5.5); Sodium 135 mmol/L (135-145); Total Iron Binding Capacity 386 ug/dL (228-460); Total Protein 6.2 g/dL (6.2-8.2)
[2021-10-05 15:48] LABS: Chol/HDL Ratio 2.01 Ratio; VLDL Calculation 10.02 mg/dL (5.00-40.00); Vitamin B12 >2000.0 pg/mL (200.0-944.0)
[2021-10-06 14:14] LABS: Zinc, Serum 58 ug/dL (60-130)
== END | disposition home or self-care (01) ==
LOC: RADUSWWP 10:26
PROVIDERS: ATTEND Surgery Plastic and Reconstructive Surgery
DX: K44.9 Diaphragmatic hernia without obstruction or gangrene (principal); Z98.84 Bariatric surgery status
CPT/HCPCS: 74220; 80053; 80061; 82306; 82525; 82607; 82728; 82746; 83036; 83540; 83550; 83735; 83970; 84100; 84255; 84425; 84443; 84590; 84630; 85027; 85610; 85730

== ENCOUNTER → 2021-11-06 | Outpatient (CLI) | payer BC ==
[2021-11-06 14:20] LABS: Basophils # (A) 0.05 X 10*3/uL (0.00-0.10); Basophils % (A) 1.1 %; Eosinophils # (A) 0.11 X 10*3/uL (0.04-0.35); Eosinophils % (A) 2.4 %; HCT 38.2 % (37.2-46.3); HGB 12.7 g/dL (12.0-15.0); Immature Grans, Automated 0.2 %; Lymphocytes # (A) 0.97 X 10*3/uL (0.90-5.00); Lymphocytes % (A) 21.3 %; MCHC 33.2 g/dL (32.0-37.0); MCV 96.2 fL (80.0-97.0); Mean Platelet Volume 10.5 fL (9.5-12.2); Monocytes % (A) 13.2 %; NRBC Per 100 WBC 0 /100 WBCS (0.0-0.0); Neutrophils # (A) 2.81 X 10*3/uL (1.80-7.70); Neutrophils % (A) 61.8 %; Platelet Count 288 X 10*3/uL (140-440); RBC 3.97 X 10*6/uL (4.10-5.20); RDW 12.1 % (11.5-14.5); WBC 4.55 X 10*3/uL (4.50-10.00)
[2021-11-06 14:58] LABS: ALT 17 U/L (8-44); AST 21 U/L (13-35); African American GFR (CKD) 111.2 (60.0-200.0); Albumin 4.1 g/dL (3.8-4.9); Albumin/Globulin Ratio 2.04 (1.60-3.17); Alkaline Phosphatase 74 U/L (41-126); BUN/Creat Ratio 31.21 Ratio (12.00-20.00); Blood Urea Nitrogen 21.1 mg/dL (9.0-27.0); Calcium 9.5 mg/dL (8.7-10.3); Carbon Dioxide 27.6 mmol/L (20.0-27.5); Chloride 99 mmol/L (96-109); Glucose 110 mg/dL (70-110); Non-African American GFR(CKD) 95.9 (60.0-200.0); Potassium 4.4 mmol/L (3.5-5.5); Sodium 134 mmol/L (135-145); Total Bilirubin <0.15 mg/dL (0.30-1.20); Total Protein 6.2 g/dL (6.2-8.2)
== END | disposition home or self-care (01) ==
LOC: LABPAT 10:39
PROVIDERS: ATTEND Surgery Plastic and Reconstructive Surgery
DX: Z01.812 Encounter for preprocedural laboratory examination (principal)
CPT/HCPCS: 36415; 80053; 85025; 93005

== ENCOUNTER 2021-11-24 07:30 | Inpatient (IN) | payer BC ==
[2022-01-05] MEDS ORDERED: ONDANSETRON 4 MG/2 ML VIAL IVP ONE ×2 (05:33→08:27)
[2022-01-05] MEDS ORDERED: DEXAMETHASONE SOD PHOSPHATE 4 MG/ML 1 ML VIAL IV ONE (05:33)
[2022-01-05] MEDS ORDERED: fentaNYL (PF) 50 MCG/ML 2 ML AMP IV PRN (05:33)
--- NOTE | 2022-01-05 06:47 | P.GSHP ---
History of Present Illness H&P Date: 01/05/22 CHIEF COMPLAINT: Paraesophageal hiatal hernia with gastroesophageal reflux disease. HISTORY OF PRESENT ILLNESS: The patient is a 61-year-old female who presents with recurrent paraesophageal hiatal hernia ongoing for over 3 months. She reports dysphagia and recurrent gastroesophageal reflux disease. She has completed barium swallow workup. Now she presents for surgical intervention. PAST MEDICAL HISTORY: Please see list. PAST SURGICAL HISTORY: Please see list. MEDICATIONS: Please see list. ALLERGIES: Please see list. SOCIAL HISTORY: No illicit drug use FAMILY HISTORY: No reports of Crohn disease or ulcerative colitis. REVIEW OF ORGAN SYSTEMS: CONSTITUTIONAL: No reports of fevers or chills. GI: Denies any blood in stools or constipation. PHYSICAL EXAM: VITAL SIGNS: Stable GENERAL: Well-developed pleasant and in no acute distress. HEENT: No scleral icterus. Extraocular movements grossly intact. Moist buccal mucosa. NECK: Supple without lymphadenopathy. CHEST: Unlabored respirations. Equal bilateral excursions. CARDIOVASCULAR: Regular rate and rhythm. Distal 2+ pulses. ABDOMEN: Soft, nondistended. No peritoneal signs. MUSCULOSKELETAL: No clubbing, cyanosis, or edema. SKIN: Well-perfused. Good skin turgor. STUDIES: CT of the abdomen and pelvis reviewed demonstrates recurrent hiatal hernia including new incisional hernia with the abdomen. This is independent interpretation. CT imaging revealed from 2021 ASSESSMENT: 1. Diaphragmatic paraesophageal hiatal hernia with severe gastroesophageal reflux disease. PLAN: 1. Recommend proceeding with a robotic paraesophageal hiatal hernia with possible mesh. 2. Benefits and risks of surgical intervention was discussed including possibility of open technique. 3. Inpatient hospitalization recommended of 2 nights 4. DVT prophylaxis. 5. Antibiotic prophylaxis. 6. She is moderately elevated risk due to prior repair and recurrence 2 Past Medical History Past Medical History: Cancer, GERD/Reflux Additional Past Medical History / Comment(s): FX RT HUMERUS-12/31/14; gastrointestinal tumor (GIST) 2020, HIATAL HERNIA, UMBILICAL HERNIA History of Any Multi-Drug Resistant Organisms: None Reported Past Surgical History: Bariatric Surgery, Bladder Surgery, Section, Cholecystectomy, Orthopedic Surgery, Tonsillectomy, Tubal Ligation, Uterine Ablation Additional Past Surgical History / Comment(s): GASTRIC SLEEVE 03/2014, rt shoulder ORIF. ORIF RT WRIST AND ANDLE W/PINS AND SCREWS. BLADDER SLING. FATTY BENIGN TUMOR REMOVED FROM BACK. COLONOSCOPY. RECENT SINUS INFECTION-ON ANTIBIOTICS-INSTRUCTED TO CALL DR. العلي. EGD Past Anesthesia/Blood Transfusion Reactions: Family History of Problems w/ Anesthesia, Motion Sickness, Postoperative Nausea & Vomiting (PONV) Additional Past Anesthesia/Blood Transfusion Reaction / Comment(s): mother PONV Smoking Status: Former smoker - Past Family History Mother Family Medical History: No Reported History Medications and Allergies Home Medications Medication Instructions Recorded Confirmed Type Biotin 5,000 mg PO TID 01/06/15 01/03/22 History Calcium Carbonate/Vitamin D3 1 tab PO DAILY 01/06/15 01/03/22 History [Calcium 600-Vit D3 400 Tablet] Cholecalciferol [Vitamin D3 (25 5,000 unit PO DAILY 01/06/15 01/03/22 History Mcg = 1000 Iu)] Multivitamins, Thera [Multivitamin 1 each PO DAILY 01/06/15 01/03/22 History (formulary)] valACYclovir HCL [Valacyclovir] 500 mg PO DAILY 01/06/15 01/03/22 History OXcarbazepine [Trileptal] 300 mg PO BID 01/20/20 01/03/22 History Nystatin 100,000 Unit/gm Powd 1 applic TOPICAL BID #60 gm 10/25/21 01/03/22 Rx [Mycostatin Powder] Fluticasone Nasal [place] [Flonase 2 spray EA NOSTRIL DAILY 11/20/21 01/03/22 History Nasal [place]] Pantoprazole [Protonix] 40 mg PO DAILY #14 tab 12/20/21 01/03/22 Rx Zinc 50 mg PO DAILY 12/20/21 01/03/22 History Allergies Allergy/AdvReac Type Severity Reaction Status Date / Time hydrocodone [From Antimony] AdvReac Rapid Verified 01/03/22 08:27 Heart Rate orange AdvReac Rash/Hives Verified 01/03/22 08:27 ORANGE DYE AdvReac BLISTERS Uncoded 01/03/22 08:27 TO INSIDE AND OUTSIDE OF MOUTH
[2022-01-05] MEDS ORDERED: CHLORHEXIDINE GLUCONATE 15 ML CUP MUCOUS MEM PRN (07:00)
[2022-01-05] MEDS ORDERED: PANTOPRAZOLE 40 MG/10 ML VIAL IVP PRN (07:00)
[2022-01-05] MEDS: LACTATED RINGERS 1,000 ML IV SCH (08:27)
[2022-01-05] MEDS ORDERED: DEXAMETHASONE SOD PHOSPHATE 4 MG/ML 1 ML VIAL IVP ONE (08:28)
[2022-01-05] MEDS ORDERED: SCOPOLAMINE 1 MG/72 HR PATCH TRANSDERM ONE (08:28)
[2022-01-05 08:32] LABS: Basophils % (A) 1 %; Eosinophils # (A) 0.1 k/uL (0-0.7); Eosinophils % (A) 3 %; HCT 41.3 % (34.0-46.0); HGB 13.8 gm/dL (11.4-16.0); Lymphocytes % (A) 32 %; MCH 32.1 pg (25.0-35.0); MCHC 33.4 g/dL (31.0-37.0); Mean Platelet Volume 7.3; Monocytes # (A) 0.3 k/uL (0-1.0); Monocytes % (A) 9 %; Neutrophils # (A) 1.6 k/uL (1.3-7.7); Neutrophils % (A) 53 %; Platelet Count 233 k/uL (150-450); RDW 12.9 % (11.5-15.5)
[2022-01-05 08:51] LABS: ALT 19 U/L (4-34); AST 29 U/L (14-36); African American GFR (CKD) >90 (>60 ml/min/1.73 sqM); Alkaline Phosphatase 74 U/L (38-126); Anion Gap 8 mmol/L; Blood Urea Nitrogen 16 mg/dL (7-17); Calcium 8.8 mg/dL (8.4-10.2); Carbon Dioxide 29 mmol/L (22-30); Chloride 92 mmol/L (98-107); Glucose 96 mg/dL (74-99); Non-African American GFR(CKD) >90 (>60 ml/min/1.73 sqM); Potassium 4.2 mmol/L (3.5-5.1); Sodium 129 mmol/L (137-145); Total Bilirubin 0.5 mg/dL (0.2-1.3); Total Protein 5.9 g/dL (6.3-8.2)
[2022-01-05] MEDS ORDERED: SODIUM CHLORIDE 0.9% 1,000 ML IV ONE ×2 (09:21→11:00)
[2022-01-05] MEDS ORDERED: NEOSTIGMINE 1 MG/ML 10 ML VIAL ONE (10:13)
[2022-01-05] MEDS ORDERED: ROCURONIUM 10 MG/ML (5 ML VIAL) IV ONE (10:13)
[2022-01-05] MEDS ORDERED: HYDROmorphone (PF) 1 MG/ML ONE (10:13)
[2022-01-05] MEDS ORDERED: ePHEDrine 50 MG/ML 1 ML VIAL ONE (10:13)
[2022-01-05] MEDS ORDERED: PROPOFOL 10 MG/ML 20 ML VIAL IV ONE (10:13)
[2022-01-05] MEDS ORDERED: GLYCOPYRROLATE 0.2 MG/ML 2 ML VIAL ONE (10:13)
[2022-01-05] MEDS ORDERED: PHENYLEPHRINE-0.9% NACL SYG 1,000 MCG/10 ML SYRINGE ONE (10:13)
[2022-01-05] MEDS ORDERED: LIDOCAINE 2% INJ 20 MG/ML (2 ML VIAL) ONE (10:13)
[2022-01-05] MEDS ORDERED: MIDAZOLAM 2 MG/2 ML VIAL ONE (10:13)
[2022-01-05] MEDS ORDERED: SUCCINYLCHOLINE CHLORIDE 200 MG/10 ML VIAL IV ONE (10:13)
[2022-01-05] MEDS ORDERED: fentaNYL (PF) 50 MCG/ML 2 ML AMP ONE (10:13)
[2022-01-05] MEDS ORDERED: BUPIVACAIN-EPI 0.25%-1:200,000 30 ML VIAL SQ ONE (10:46)
[2022-01-05] MEDS ORDERED: SODIUM CHLORIDE 0.9% 500 ML 500 ML IV ONE (11:00)
[2022-01-05] MEDS ORDERED: LACTATED RINGERS 1,000 ML IV ONE (12:03)
[2022-01-05] MEDS ORDERED: diphenhydrAMINE 50 MG/ML 1 ML VIAL IVP PRN (12:38)
[2022-01-05] MEDS ORDERED: NALOXONE 0.4 MG/ML 1 ML VIAL IV PRN ×2 (12:38→16:31)
[2022-01-05] MEDS ORDERED: diphenhydrAMINE 50 MG/ML 1 ML VIAL IVP ONE (12:43)
--- NOTE | 2022-01-05 12:59 | P.OP ---
Date of Procedure: 01/05/22 Description of Procedure: SURGEON: JOEL العلي MD PREOPERATIVE DIAGNOSES: 1. Recurrent paraesophageal hiatal hernia, midline 2. History of sleeve gastrectomy 3. Dysphagia 4. Epigastric abdominal pain 5. Gastroesophageal reflux disease 6. Depressive disorder 7. Bipolar disorder POSTOPERATIVE DIAGNOSES: 1. Paraesophageal hiatal hernia, midline, incarcerated and recurrent, 3 x 4 cm, type III, with obstruction and gastric volvulus 2. Gastroesophageal reflux disease, severe 3. History of sleeve gastrectomy 4. Epigastric abdominal pain 5. Incisional hernia midline from prior pancreatectomy 6. Moderate to severe epigastric and midline peritoneal adhesions 7. Depressive disorder 8. Bipolar disorder 9. Incisional hernia with incarceration from recent pancreatectomy OPERATION: 1. Robotic-assisted da Xiao Xi laparoscopic reduction of gastric volvulus and repair of recurrent incarcerated paraesophageal hiatal hernia, 3 x 4 cm, with [place] Biopatch A 8 x 8 cm. 2. Robotic-assisted da Xiao Xi laparoscopic extensive lysis of adhesions over 1 hour 3. Robotic-assisted da Xiao Xi laparoscopic reduction of multiple incisional hernias 4. Intraoperative esophagogastroscopy ANESTHESIA: General with local anesthetic. ESTIMATED BLOOD LOSS: 5 mL Pathology: None COMPLICATIONS: None. FINDINGS: 1. Severe midline and epigastric adhesions from prior open pancreatectomy. 2. Multiple incisional hernias along the midline epigastrium recent pancreatectomy, reduced 3. Incarcerated upper pole of the stomach within the mediastinum with moderate dissection performed 4. New recurrence at anterior hiatus with posterior hiatal hernia repair intact 5. [place] Biopatch A onlay mesh placed. 6. Intra-abdominal esophageal length over 2 cm obtained INDICATIONS: The patient is a 61-year-old female who had recent open pancreatectomy [facility] with an developed severe gastroesophageal reflux disease 3 months ago. She has personal history of hiatal hernia repair 2. Recent diagnostic studies demonstrated recurrent diaphragmatic hiatal hernia with incarceration of the stomach consistent with paraesophageal type. Given the severity of her symptoms, she had elected for surgical intervention. Benefits and risks including bleeding, infection, recurrence, dysphagia, injury to the lung, need for further surgery was described at length. Informed consent was obtained. DESCRIPTION: The patient was brought into the operating room and placed in supine position. Preoperatively she had received Lovenox subcutaneously for DVT prophylaxis. After general induction, the abdomen was prepped and draped in standard sterile fashion. The patient had previously voided prior to coming to the operating room. [place] draping was placed along the abdomen. A timeout protocol was confirmed with the surgical team, for which the patient's name, procedure to be performed including DVT prophylaxis with bilateral SCDs, and preoperative antibiotics were also confirmed. A robotic da Xiao Xi system was prepped and primed. At 12 cm from the xiphoid to just below the umbilicus, proposed port sites were marked with indelible marker along the left axillary line, left mid-clavicular line with each ports were marked 10 cm from each other. A 5 mm 0 degrees la paroscopic trocar entry was performed along the left upper quadrant. The abdomen was insufflated to 15 mmHg pressure was tolerated well. Diagnostic laparoscopy demonstrated no injury to bowel, viscera. Severe midline adhesions of omentum to the abdominal wall was identified. Next, one 8 mm robotic port was placed along the right upper abdomen. An 8-mm port was were placed along the left lateral abdominal wall. Another 12 mm port was placed along the left upper abdominal wall after exchanging the 5 mm port. Please note that the ports were placed at least 20 cm away from the target anatomy. Care was taken to check that each robotic arm were safely away from collision with the bed or the patient. The patient was repositioned in reverse Trendelenburg position at 21-degrees after lowering the bed. The robot was docked above the left side of the patient. The robotic system was docked and primed as described. Instruments were interchanged by the starch treating assistant. I had sat at the console. Initial attention was brought to the severe peritoneal adhesions involving the greater omentum to the anterior abdominal wall of the epigastrium including midline and right including left upper quadrant. Using combination blunt dissection including vessel sealer for sharp dissection, extensive lysis of adhesions over 1 hour was performed to free the anterior wall and placement of additional trocar. Multiple incisional hernias from her open pancreatectomy were identified and reduced using vessel sealer. I re-scrubbed into the case. The camera 8-mm port was placed along the epigastrium. I returned to the console. Dissection was carried to the hiatus circumferentially using vessel sealer including blunt dissection. Previous retained suture was found along the posterior hiatal hernia repair and intact. The hiatus hernia recurred anteriorly. Gastric volvulus was identified and reduced from the mediastinum after moderate dissection. To prevent any injury to the esophagus including proximal stomach, I performed an intraoperative upper endoscopy with the scope entering along the posterior oropharynx into the distal stomach and left in place as a bougie. Next, the phrenoesophageal ligament was mobilized and the distal esophagus was mobilized circumferentially. An incarcerated hernia sac was found into the mediastinum. As a result, deep dissection well into the mediastinum was needed to free the proximal sleeve gastrectomy including distal esophagus consistent with a type III hiatal hernia with a gastric volvulus. The left and right crura was identified. Significant mobilization of the distal to mid esophagus into the mediastinum was performed. Circumferentially, the hernia sac was excised and brought into the abdominal cavity. Care was taken to avoid any gastrotomy to the incarcerated upper pole of the stomach. The defect was 4 cm axial length and 3 cm in width. After extensive dissection, the distal esophagus at least 2 cm was brought into the abdominal cavity. Once the hiatus and crura was dissected, nonabsorbable 2-0 VLOC suture was placed anteriorly as a running suture to re-approximate the diaphragmatic hiatus. The prior posterior hiatal hernia repair was intact. To buttress the repair, a [place] Biopatch A was prepared along the back table and cut in a rosenberg-hole fashion as to reinforce the repair as an underlay. The mesh was resized and anteriorly placed along the crural repair and tagged using blue 2-0 VLOC. I went to the head of the bed to perform intraoperative esophagogastroduodenoscopy. An Olympus gastroscope was passed through posterior oropharynx. The stomach was entered. No injury to the esophagus or gastric pouch was identified. The stomach had been desufflated. No evidence of leaks were found or mucosal defects of the esophagus or stomach. This concluded the endoscopic portion of the case. The robot was undocked from the patient. I re-scrubbed into the case. All instruments and pneumoperitoneum were evacuated from the abdominal cavity. The incisions were cleansed with dilute hydrogen peroxide with saline solution. Incisions were reapproximated using 4-0 Monocryl in an interrupted subcuticular fashion. The 12-mm port site fascial defect was less than 8 mm in size. Exofin glue was applied to the skin. Local anesthetic was infiltrated in all wounds for postop analgesia. Multiple intra-abdominal films were obtained. At the end of the procedure, needle, sponge, and instrument count was verified correct by the regional vice president surgical sales. The patient had tolerated the procedure well and was taken to the postanesthesia unit in stable condition. Intraoperative films were reviewed with the patient's family who were pleased with the level of care.
--- NOTE | 2022-01-05 13:11 | XR ---
EXAMINATION TYPE: XR chest 1V portable DATE OF EXAM: 01/05/2022 HISTORY: Shortness of breath. COMPARISON: 12/20/2021 TECHNIQUE: Single view of the chest is submitted. FINDINGS: Demonstrated are scattered senescent parenchymal change. There is left perihilar and left basilar infiltrate. Correlate for pneumonia. Progress studies are ad vised. Pulmonary venous congestion noted. The heart is stable. Hilar and mediastinal structures are within normal limits. Degenerative changes are seen of the dorsal spine. IMPRESSION: 1. There is left perihilar and left basilar infiltrate. Correlate for pneumonia. Progress studies ar e advised.
[2022-01-05] MEDS: KETOROLAC 15 MG/ML 1 ML VIAL IVP SCH ×2 (15:10→18:01)
[2022-01-05] MEDS: 0.9% NACL WITH KCL 20 MEQ/L 1,000 ML IV SCH ×2 (15:10→23:47)
[2022-01-05] MEDS: ALBUTEROL NEBULIZED 2.5 MG/3 ML INHALATION SCH ×2 (16:09→20:42)
[2022-01-05] MEDS ORDERED: TRIMETHOBENZAMIDE 100 MG/ML 2 ML VIAL IM PRN (16:29)
[2022-01-05] MEDS ORDERED: PROCHLORPERAZINE INJ 10 MG/2 ML VIAL IVP PRN (16:29)
[2022-01-05] MEDS ORDERED: DEXAMETHASONE SOD PHOSPHATE 10 MG/ML 1 ML VIAL IVP ONE (17:00)
[2022-01-05] MEDS ORDERED: SCOPOLAMINE 1 MG/72 HR PATCH TRANSDERM SCH (17:00)
[2022-01-05] MEDS: HYOSCYAMINE ORAL DROPS 1.875 MG/15 ML BOTTLE PO SCH (17:59)
[2022-01-05] MEDS: SIMETHICONE 40 MG/0.6 ML DROPS 2,000 MG/30 ML BOTTLE PO SCH (18:00)
[2022-01-05] MEDS: ONDANSETRON 4 MG/2 ML VIAL IVP SCH (18:01)
[2022-01-05] MEDS: ACETAMINOPHEN IV (For NPO) 1,000 MG in EMPTY BAG 1 BAG IVPB SCH ×2 (18:17→23:59)
[2022-01-05] MEDS: fentaNYL PCA 500 MCG/50 ML BAG IV PRN (18:20)
[2022-01-05] MEDS: DEXAMETHASONE SOD PHOSPHATE 4 MG/ML 1 ML VIAL IVP SCH (21:26)
[2022-01-05] MEDS: PANTOPRAZOLE 40 MG/10 ML VIAL IV SCH (21:26)
[2022-01-05] MEDS: OXcarbazepine 300 MG TAB PO SCH (21:26)
[2022-01-06] MEDS: SIMETHICONE 40 MG/0.6 ML DROPS 2,000 MG/30 ML BOTTLE PO SCH ×3 (00:24→12:31)
[2022-01-06] MEDS: KETOROLAC 15 MG/ML 1 ML VIAL IVP SCH ×3 (00:24→12:31)
[2022-01-06] MEDS: ONDANSETRON 4 MG/2 ML VIAL IVP SCH ×3 (00:24→12:31)
[2022-01-06] MEDS: HYOSCYAMINE ORAL DROPS 1.875 MG/15 ML BOTTLE PO SCH ×3 (00:25→12:32)
[2022-01-06] MEDS: fentaNYL PCA 500 MCG/50 ML BAG IV PRN (00:59)
[2022-01-06] MEDS: LACTATED RINGERS 1,000 ML IV SCH (03:51)
[2022-01-06] MEDS: 0.9% NACL WITH KCL 20 MEQ/L 1,000 ML IV SCH (03:51)
[2022-01-06] MEDS: DEXAMETHASONE SOD PHOSPHATE 4 MG/ML 1 ML VIAL IVP SCH ×2 (03:53→09:10)
[2022-01-06] MEDS: ACETAMINOPHEN IV (For NPO) 1,000 MG in EMPTY BAG 1 BAG IVPB SCH ×2 (05:56→11:18)
[2022-01-06 07:55] LABS: African American GFR (CKD) >90 (>60 ml/min/1.73 sqM); Anion Gap 7 mmol/L; Blood Urea Nitrogen 9 mg/dL (7-17); Calcium 8.3 mg/dL (8.4-10.2); Carbon Dioxide 26 mmol/L (22-30); Chloride 101 mmol/L (98-107); Non-African American GFR(CKD) >90 (>60 ml/min/1.73 sqM); Phosphorus 2.9 mg/dL (2.5-4.5); Potassium 4.9 mmol/L (3.5-5.1); Sodium 134 mmol/L (137-145)
[2022-01-06] MEDS ORDERED: 0.9% NACL WITH KCL 20 MEQ/L 1,000 ML IV SCH (08:00)
[2022-01-06] MEDS: ALBUTEROL NEBULIZED 2.5 MG/3 ML INHALATION SCH ×2 (08:38→12:17)
--- NOTE | 2022-01-06 08:38 | FL ---
SINGLE CONTRAST UPPER GI EXAMINATION: CLINICAL HISTORY: 61-year-old female postop hiatal hernia repair. Patient reports a history of multi ple repairs and previous sleeve gastrectomy. TECHNIQUE: Single contrast exam performed with 50 ml Isovue-370 contrast. Total fluoroscopy time: 1 minute 36 seconds. Total images: 38. FINDINGS: The patient swallowed oral contrast without difficulty or delay. Esophageal peristalsis shows mild t o moderate dysmotility along the distal half of the esophagus with intermittent intraesophageal reflu x. There is mild to moderate relative narrowing across the GE junction causing some pooling in the di stal esophagus during a larger bolus challenge. Otherwise, there is gradual clearance of contrast fro m the distal esophagus as it makes its way into the stomach. There are postsurgical changes of sleeve gastrectomy. Images are available for review. Cholecystectom y clips. No extravasation of contrast to suggest leak. No residual hiatal hernia seen. No evidence for any free air below the hemidiaphragms. There is some patchy opacity at the left base, probably atelectasis IMPRESSION: 1. No evidence for leak status post hiatal hernia repair. 2. There is a mild to moderate relative narrowing/obstruction at the GE junction, probably postoperat michael edema. Follow-up as clinically indicated. 3. Mild to moderate dysmotility distal half of the esophagus with some episodes of intraesophageal re flux encountered. 4. Prior sleeve gastrectomy.
[2022-01-06] MEDS ORDERED: FLUTICASONE 50MCG/SPRAY NASAL 16GM EA NOSTRIL SCH (09:00)
[2022-01-06] MEDS: PANTOPRAZOLE 40 MG/10 ML VIAL IV SCH (09:10)
[2022-01-06] MEDS: OXcarbazepine 300 MG TAB PO SCH (09:11)
[2022-01-06 11:27] VITALS: BMI 29.0
[2022-01-06 11:39] LABS: Basophils # (A) 0.01 X 10*3/uL (0.00-0.10); Basophils % (A) 0.1 %; Eosinophils # (A) 0 X 10*3/uL (0.04-0.35); Eosinophils % (A) 0 %; HCT 36.2 % (37.2-46.3); HGB 12.2 g/dL (12.0-15.0); Immature Grans, Automated 0.3 %; Lymphocytes # (A) 0.53 X 10*3/uL (0.90-5.00); Lymphocytes % (A) 7.2 %; MCH 31.9 pg (27.0-32.0); MCHC 33.7 g/dL (32.0-37.0); MCV 94.5 fL (80.0-97.0); Mean Platelet Volume 10.3 fL (9.5-12.2); Monocytes # (A) 0.22 X 10*3/uL (0.20-1.00); NRBC Per 100 WBC 0 /100 WBCS (0.0-0.0); Neutrophils # (A) 6.57 X 10*3/uL (1.80-7.70); Neutrophils % (A) 89.4 %; Platelet Count 228 X 10*3/uL (140-440); RBC 3.83 X 10*6/uL (4.10-5.20); RDW 13.4 % (11.5-14.5); WBC 7.35 X 10*3/uL (4.50-10.00)
[2022-01-06 14:16] VITALS: BP 107/69; PULSE 71; RESP 17; TEMP 97.8
--- NOTE | 2022-01-06 14:46 | P.DS ---
Providers Date of admission: 01/05/22 07:40 Expected date of discharge: 01/06/22 Attending physician: Lalitha Washington Primary care physician: [facility] Course: POSTOPERATIVE DIAGNOSES: 1. Paraesophageal hiatal hernia, midline, incarcerated and recurrent, 3 x 4 cm, type III, with obstruction and gastric volvulus 2. Gastroesophageal reflux disease, severe 3. History of sleeve gastrectomy 4. Epigastric abdominal pain 5. Incisional hernia midline from prior pancreatectomy 6. Moderate to severe epigastric and midline peritoneal adhesions 7. Depressive disorder 8. Bipolar disorder 9. Incisional hernia with incarceration from recent pancreatectomy COURSE: The patient is a 61-year-old female Socialpresents with recurrent paraesophageal hiatal hernia including gastroesophageal reflux disease. She un derwent repair of recurrent paraesophageal hiatal hernia. Postoperatively, reflux symptoms had resolved. Esophagram reviewed without leaks. Mild obstructionIdentified. Patient reports completely asymptomatic of findings. Discharge diet including medical reconciliation was performed. Patient was stable for discharge. No reports of nausea or vomiting prior to discharge. ROS: No reports of nausea and vomiting. No fevers or chills. No new chest pain. No productive sputum PHYSICAL EXAM: VITAL SIGNS: Reviewed CONSTITUTIONAL: Well developed and in no acute distress. EYES: Conjuctivae without sclera icterus. Extraocular movements grossly intact. HEAD, EARS, NOSE, THROAT: Moist buccal mucosa. Head is atraumatic, normocephalic. Hears conversational speech. No nasal drainage. RESPIRATORY: Non-labored respirations and equal bilateral excursions. CARDIOVASCULAR: Palpable 2+ radial pulses. ABDOMEN: Incisions clean dry and intact MUSCULOSKELETAL: No gross deformity of the lower extremities noted. No clubbing. No cyanosis. SKIN: Good skin turgor. Well perfused. NEUROLOGIC: Cranial nerves II through XII grossly intact. No focal or lateralizing signs. PSYCH: Appropriate affect. Alert and oriented to person, place and time. CLINICAL LABS: Reviewed. Vital Signs Temp 97.8 F 01/06/22 14:00 Pulse 71 01/06/22 14:00 Resp 17 01/06/22 14:00 BP 107/69 01/06/22 14:00 Pulse Ox 95 01/06/22 14:00 FiO2 Intake & Output 01/05/22 01/06/22 01/06/22 18:59 06:59 18:59 Intake Total 2950 600 Output Total 305 100 Balance 2645 500 Weight 81.8 kg 81.8 kg Intake: IV 2950 Oral 600 Output: Urine 300 100 Estimated Blood Loss 5 Other: Voiding Method Toilet # Voids 4 2 1 Laboratory Last Values WBC 7.35 X 10*3/uL (4.50-10.00) 01/06/22 06:55 RBC 3.83 X 10*6/uL (4.10-5.20) L 01/06/22 06:55 Hgb 12.2 g/dL (12.0-15.0) 01/06/22 06:55 Hct 36.2 % (37.2-46.3) L 01/06/22 06:55 MCV 94.5 fL (80.0-97.0) 01/06/22 06:55 MCH 31.9 pg (27.0-32.0) 01/06/22 06:55 MCHC 33.7 g/dL (32.0-37.0) 01/06/22 06:55 RDW 13.4 % (11.5-14.5) 01/06/22 06:55 Plt Count 228 X 10*3/uL (140-440) 01/06/22 06:55 MPV 10.3 fL (9.5-12.2) 01/06/22 06:55 Immature Gran % (Auto) 0.3 % 01/06/22 06:55 Absolute Nucleated RBC 0 X 10*3/uL (0.00-0.00) 01/06/22 06:55 Neutrophils % 89.4 % 01/06/22 06:55 Lymphocytes % 7.2 % 01/06/22 06:55 Monocytes % 3.0 % 01/06/22 06:55 Eosinophils % 0 % 01/06/22 06:55 Basophils % 0.1 % 01/06/22 06:55 Immature Gran # 0.02 X 10*3/uL (0.00-0.04) 01/06/22 06:55 Neutrophils # 6.57 X 10*3/uL (1.80-7.70) 01/06/22 06:55 Lymphocytes # 0.53 X 10*3/uL (0.90-5.00) L 01/06/22 06:55 Monocytes # 0.22 X 10*3/uL (0.20-1.00) 01/06/22 06:55 Eosinophils # 0 X 10*3/uL (0.04-0.35) L 01/06/22 06:55 Basophils # 0.01 X 10*3/uL (0.00-0.10) 01/06/22 06:55 NRBC/100 WBC Diff 0 /100 WBCS (0.0-0.0) 01/06/22 06:55 Sodium 134 mmol/L (137-145) L 01/06/22 06:55 Potassium 4.9 mmol/L (3.5-5.1) 01/06/22 06:55 Chloride 101 mmol/L (98-107) 01/06/22 06:55 Carbon Dioxide 26 mmol/L (22-30) 01/06/22 06:55 Anion Gap 7 mmol/L 01/06/22 06:55 BUN 9 mg/dL (7-17) 01/06/22 06:55 Creatinine 0.51 mg/dL (0.52-1.04) L 01/06/22 06:55 Est GFR (CKD-EPI)AfAm >90 (>60 ml/min/1.73 sqM) 01/06/22 06:55 Est GFR (CKD-EPI)NonAf >90 (>60 ml/min/1.73 sqM) 01/06/22 06:55 Glucose 96 mg/dL (74-99) 01/05/22 08:20 Calcium 8.3 mg/dL (8.4-10.2) L 01/06/22 06:55 Phosphorus 2.9 mg/dL (2.5-4.5) 01/06/22 06:55 Magnesium 2.0 mg/dL (1.6-2.3) 01/06/22 06:55 Total Bilirubin 0.5 mg/dL (0.2-1.3) 01/05/22 08:20 AST 29 U/L (14-36) 01/05/22 08:20 ALT 19 U/L (4-34) 01/05/22 08:20 Alkaline Phosphatase 74 U/L (38-126) 01/05/22 08:20 Total Protein 5.9 g/dL (6.3-8.2) L 01/05/22 08:20 Albumin 4.0 g/dL (3.5-5.0) 01/05/22 08:20 Procedures: OPERATION: 1. Robotic-assisted da Xiao Xi laparoscopic reduction of gastric volvulus and repair of recurrent incarcerated paraesophageal hiatal hernia, 3 x 4 cm, with [place] Biopatch A 8 x 8 cm. 2. Robotic-assisted da Xiao Xi laparoscopic extensive lysis of adhesions over 1 hour 3. Robotic-assisted da Xiao Xi laparoscopic reduction of multiple incisional hernias 4. Intraoperative esophagogastroscopy ANESTHESIA: General with local anesthetic. ESTIMATED BLOOD LOSS: 5 mL Pathology: None COMPLICATIONS: None. FINDINGS: 1. Severe midline and epigastric adhesions from prior open pancreatectomy. 2. Multiple incisional hernias along the midline epigastrium recent pancreatectomy, reduced 3. Incarcerated upper pole of the stomach within the mediastinum with moderate dissection performed 4. New recurrence at anterior hiatus with posterior hiatal hernia repair intact 5. [place] Biopatch A onlay mesh placed. 6. Intra-abdominal esophageal length over 2 cm obtained Patient Condition at Discharge: Good Plan - Discharge Summary Discharge Rx Participant: Yes New Discharge Prescriptions: New Simethicone 40 mg/0.6 ml Drops [Mylicon Drops] 40 mg PO PCHS PRN #30 ml PRN Reason: Gas Acetaminophen Tab [Tylenol Tab] 1,000 mg PO Q6HR PRN #30 tablet PRN Reason: Pain bisacodyL [Dulcolax] 5 mg PO DAILY PRN #10 tab PRN Reason: Constipation Ondansetron Odt [Zofran Odt] 4 mg PO Q8HR PRN #9 tab PRN Reason: Nausea Continue valACYclovir HCL [Valacyclovir] 500 mg PO DAILY OXcarbazepine [Trileptal] 300 mg PO BID Fluticasone Nasal [place] [Flonase Nasal [place]] 2 spray EA NOSTRIL DAILY Nystatin 100,000 Unit/gm Powd [Mycostatin Powder] 1 applic TOPICAL BID #60 gm Discontinued Cholecalciferol [Vitamin D3 (25 Mcg = 1000 Iu)] 5,000 unit PO DAILY Multivitamins, Thera [Multivitamin (formulary)] 1 each PO DAILY Calcium Carbonate/Vitamin D3 [Calcium 600-Vit D3 400 Tablet] 1 tab PO DAILY Biotin 5,000 mg PO TID Zinc 50 mg PO DAILY Pantoprazole [Protonix] 40 mg PO DAILY #14 tab Discharge Medication List valACYclovir HCL [Valacyclovir] 500 mg PO DAILY 01/06/15 [History] OXcarbazepine [Trileptal] 300 mg PO BID 01/20/20 [History] Nystatin 100,000 Unit/gm Powd [Mycostatin Powder] 1 applic TOPICAL BID #60 gm 10/25/21 [Rx] Fluticasone Nasal [place] [Flonase Nasal [place]] 2 spray EA NOSTRIL DAILY 11/20/21 [History] Acetaminophen Tab [Tylenol Tab] 1,000 mg PO Q6HR PRN #30 tablet 01/06/22 [Rx] Ondansetron Odt [Zofran Odt] 4 mg PO Q8HR PRN #9 tab 01/06/22 [Rx] Simethicone 40 mg/0.6 ml Drops [Mylicon Drops] 40 mg PO PCHS PRN #30 ml 01/06/22 [Rx] bisacodyL [Dulcolax] 5 mg PO DAILY PRN #10 tab 01/06/22 [Rx] Follow up [facility]ment(s[facility] [place] [place] [facility] [place] (Call for time at [facility] [place] [place] on Saturday) Patient Instructions/Handouts: *Surgery [facility] - Scopalamine Patch Instructions, Laparoscopic Hiatal Hernia Repair (DC), Nutrition after Bariatric Surgery (GEN), Laparoscopic Sleeve Gastrectomy (DC), *Sur[facility] - Managing Your Pain After Surgery Without Opioids Activity/Diet/Wound Care/Special Instructions: BARIATRIC Liquid diet for 2 weeks until Jan 19 No lifting over 4 pounds in 4 weeks, Feb 04 May shower No soaking in bath tubs for 2 weeks, Jan 19 Please notify your surgeon if you develop nausea and vomiting including new onset of abdominal pain. Please ambulate at all times. Use Simethicone, Gas-X, Tylenol and ibuprofen or Aleve scheduled for the next 24 -48 hours for best pain relief. Use ice along incisions for the today to prevent swelling. Please open, cut, crush pills larger than the size of a tic tack No carbonated beverages. No straws. Do not remove scopolamine patch for 3 days, if present Avoiding Gas Avoid drinking through a straw. Do not chew gum or tobacco. These actions cause you to swallow air, which produces excess gas in your stomach. Chew with your mouth closed. Avoid any foods that cause stomach gas and distention. These foods include corn, dried beans, peas, lentils, onions, broccoli, cauliflower and any food from the cabbage family. Avoid carbonated drinks, alcohol, citrus and tomato products. Carbonated drinks (sodas) are not allowed for the first six to eight weeks after surgery. After this time you can try them again in small amounts Clear Liquid Diet The first diet after surgery is the clear liquid diet. It includes the following liquids: Apple juice Cranberry juice Grape juice Chicken broth Beef broth Flavored gelatin (Jell-O) Decaf tea and coffee Caffeinated beverages are permitted based on tolerance [facility] Congolese ice Full Liquid Diet The full liquid diet contains anything on the clear liquid diet, plus: Milk, soy, rice and almond (no chocolate) Cream of wheat, cream of rice, grits Strained creamed soups (no tomato or broccoli) Vanilla and strawberry-flavored ice cream Sherbet Blended, custard styled or whipped yogurt (plain or vanilla only) Vanilla and butterscotch pudding (no chocolate or coconut) Nutritional drinks including Ensure, Boost, Monon Instant Breakfast (no chocolate-flavored) Note: Dairy products, such as milk, ice cream and pudding, may cause diarrhea in some people just after surgery. You may need to avoid milk products. If so, substitute them with lactose-free beverages, such as soy, rice, Lactaid or almond milks. Discharge Disposition: HOME SELF-CARE
[2022-01-07] MEDS ORDERED: bisacodyL 5 MG TABLET.DR PO PRN (08:00)
--- NOTE | 2022-01-08 12:56 | CDI ---
Documentation Clarification Form Date: 01/08/22 From: Annie Smith Admit Date: 01/05/2022 07:40:00 AM Patient Name: Ky Hodges Visit Number: [id number] Discharge Date: 01/06/2022 03:30:00 PM ATTENTION: The Clinical Documentation Specialists (CDI) and [facility] Coding Staff appreciate your assistance in clarifying documentation. Please respond to the clarification below the line at the bottom and electronically sign. The CDI & [facility] Coding staff will review the response and follow-up if needed. Please note: Queries are made part of the Legal Health Record. If you have any questions, please contact the author of this message via ITS. Dr. Lalitha Washington, Your patient has an abnormal lab value: sodium 129/134 Please clarify if there is an additional diagnosis and/or clinical significance related to this value. History/Risk Factors: Paraesophageal hiatal hernia, midline, incarcerated with obstruction and gastric vovulus, Clinical indicators: sodium 129 & 134 Treatment: 0.9% NaCl with KCL 20 meq 1,000 m IV 150 mls/hr Is there an additional diagnosis and/or clinical significance related to the above lab result/information? [ x] Hyponatremia [ ] No additional diagnosis/Not clinically significant [ ] Other, please specify [ ] Unable to determine [ x] Hyponatremia 01/08/22 @ 1627 [facility]
== END 2022-01-06 15:30 | disposition home or self-care (01) | DRG 327 ==
LOC: 2ORMAIN 01-05 07:40 → 4SSUR 01-05 12:50
PROVIDERS: ADMIT Surgery Plastic and Reconstructive Surgery; ATTEND Surgery Plastic and Reconstructive Surgery
PROC: 0DS64ZZ Reposition Stomach, Percutaneous Endoscopic Approach (ICD-10-PCS; principal; 2022-01-05 08:55)
PROC: 8E0W4CZ Robotic Assisted Procedure of Trunk Region, Percutaneous Endoscopic Approach (ICD-10-PCS; principal; 2022-01-05 08:55)
PROC: 0WQF4ZZ Repair Abdominal Wall, Percutaneous Endoscopic Approach (ICD-10-PCS; principal; 2022-01-05 08:55)
PROC: 0BUT4JZ Supplement Diaphragm with Synthetic Substitute, Percutaneous Endoscopic Approach (ICD-10-PCS; principal; 2022-01-05 08:55)
PROC: 0DNU4ZZ Release Omentum, Percutaneous Endoscopic Approach (ICD-10-PCS; principal; 2022-01-05 08:55)
PROC: 0DJ08ZZ Inspection of Upper Intestinal Tract, Via Natural or Artificial Opening Endoscopic (ICD-10-PCS; principal; 2022-01-05 08:55)
DX: K44.0 Diaphragmatic hernia with obstruction, without gangrene (principal); E87.1 Hypo-osmolality and hyponatremia; K43.0 Incisional hernia with obstruction, without gangrene; F31.9 Bipolar disorder, unspecified; K66.0 Peritoneal adhesions (postprocedural) (postinfection); K31.89 Other diseases of stomach and duodenum; K21.9 Gastro-esophageal reflux disease without esophagitis; R13.10 Dysphagia, unspecified; Z79.899 Other long term (current) drug therapy; Z98.84 Bariatric surgery status; Z90.410 Acquired total absence of pancreas; Z87.891 Personal history of nicotine dependence; Z85.831 Personal history of malignant neoplasm of soft tissue; Z91.02 Food additives allergy status; Z88.5 Allergy status to narcotic agent; Z91.018 Allergy to other foods
CPT/HCPCS: 71045; 74240; 80051; 80053; 82310; 82565; 83735; 84100; 84520; 85025; 94640

== ENCOUNTER → 2021-12-20 | Outpatient (CLI) | payer BC ==
[2021-12-20 14:41] VITALS: BP 128/84; PULSE 105; RESP 16; TEMP 98; BMI 29.0
--- NOTE | 2021-12-20 15:04 | P.BASOAP ---
Subjective Progress Note Date: 12/20/21 She comes in with chronic cough. She was placed on antibiotics. She was placed on steroids. Recommend start of protonix. She is off all medications. Objective - Vital Signs Vital signs: Vital Signs Temp 98 F 12/20/21 14:35 Pulse 105 H 12/20/21 14:35 Resp 16 12/20/21 14:35 BP 128/84 12/20/21 14:35 Pulse Ox FiO2 Intake & Output 12/19/21 12/20/21 12/20/21 18:59 06:59 18:59 Weight 81.647 kg Assessment/Plan Plan: Date: 12/20/21 Initial Weight: 108.862 kg Initial BMI: 38.7 Current Weight: 81.647 kg Current BMI: 29.0 Type of Surgery: Vertical Sleeve Gastrectomy Total Volume in Band: Previous Volume: Volume Removed: Volume Added: Band Size:
[2021-12-20 23:45] LABS: Basophils # (A) 0.04 X 10*3/uL (0.00-0.10); Basophils % (A) 0.9 %; Eosinophils # (A) 0.05 X 10*3/uL (0.04-0.35); Eosinophils % (A) 1.1 %; HGB 13.2 g/dL (12.0-15.0); Immature Grans, Automated 0.2 %; Lymphocytes # (A) 1.15 X 10*3/uL (0.90-5.00); Lymphocytes % (A) 25.7 %; MCH 31.7 pg (27.0-32.0); MCHC 34.7 g/dL (32.0-37.0); MCV 91.1 fL (80.0-97.0); Mean Platelet Volume 10.1 fL (9.5-12.2); Monocytes # (A) 0.51 X 10*3/uL (0.20-1.00); Monocytes % (A) 11.4 %; NRBC Per 100 WBC 0 /100 WBCS (0.0-0.0); Neutrophils # (A) 2.71 X 10*3/uL (1.80-7.70); Neutrophils % (A) 60.7 %; Platelet Count 287 X 10*3/uL (140-440); RBC 4.17 X 10*6/uL (4.10-5.20); WBC 4.47 X 10*3/uL (4.50-10.00)
[2021-12-21 00:31] LABS: African American GFR (CKD) 112.9 (60.0-200.0); Albumin 4.4 g/dL (3.8-4.9); Albumin/Globulin Ratio 2.51 (1.60-3.17); Anion Gap 10.3 mmol/L (10.00-18.00); BUN/Creat Ratio 28.37 Ratio (12.00-20.00); Blood Urea Nitrogen 18.3 mg/dL (9.0-27.0); Calcium 9.6 mg/dL (8.7-10.3); Carbon Dioxide 26.6 mmol/L (20.0-27.5); Globulin 1.8 g/dL (1.6-3.3); Non-African American GFR(CKD) 97.4 (60.0-200.0); Potassium 4.2 mmol/L (3.5-5.5); Total Bilirubin 0.3 mg/dL (0.30-1.20); Total Protein 6.2 g/dL (6.2-8.2)
== END | disposition home or self-care (01) ==
LOC: BARWHC3 14:17
PROVIDERS: ATTEND Surgery Plastic and Reconstructive Surgery
DX: E66.01 Morbid (severe) obesity due to excess calories (principal); Z01.818 Encounter for other preprocedural examination; R05.9 Cough, unspecified; Z68.38 Body mass index [BMI] 38.0-38.9, adult
CPT/HCPCS: 80053; 85025; 99211

== ENCOUNTER → 2021-12-20 | Outpatient (CLI) | payer BC ==
--- NOTE | 2021-12-20 16:13 | XR ---
EXAMINATION TYPE: XR chest 2V DATE OF EXAM: 12/20/2021 COMPARISON: None INDICATION: Cough, presurgical clearance TECHNIQUE: Frontal and lateral views of the chest are obtained. FINDINGS: The heart size is normal. The pulmonary vasculature is normal. The lungs are clear. Old repair of the right shoulder is within the field of view. IMPRESSION: 1. No acute pulmonary process.
== END | disposition home or self-care (01) ==
LOC: RADXRMAIN 15:51
PROVIDERS: ATTEND Surgery Plastic and Reconstructive Surgery
DX: R05.9 Cough, unspecified (principal)
CPT/HCPCS: 71046

== ENCOUNTER → 2022-02-07 | Outpatient (CLI) | payer BC ==
--- NOTE | 2022-02-07 11:50 | FL ---
EXAMINATION TYPE: FL barium swallow DATE OF EXAM: 02/07/2022 11:40 AM COMPARISON: Upper GI 01/06/2022, esophagram 10/05/2021. CLINICAL INDICATION:Female, 61 years old with history of R10.13 DYSPHAGIA; PHH, TECHNIQUE: The procedure was explained and patient history elicited. All patient questions were ans wered prior to start of procedure. Multiple spot fluoroscopic images of the esophagus were obtained a fter the oral ingestion of liquid barium as the contrast agent. Fluoroscopic time: 18 seconds Fluoroscopic images: 117 FINDINGS: Post surgical changes from gastric sleeve. No evidence for leak. Esophagus demonstrates normal primar y and secondary peristalsis. Mild tertiary peristalsis noted. Contrast easily flows into the stomach from the esophagus. The esophageal mucosa is smooth without evidence of focal stricture, ulceration, or abnormal outpouching. Mild amount of gastroesophageal reflux was elicited with Valsalva maneuver. No hiatal hernia demonstrated. IMPRESSION: 1. Mild gastroesophageal reflux. 2. Post surgical changes of sleeve gastrectomy. 3. Mild esophageal dysmotility.
== END | disposition home or self-care (01) ==
LOC: RADUSWWP 10:46
PROVIDERS: ATTEND Surgery Plastic and Reconstructive Surgery
DX: K21.9 Gastro-esophageal reflux disease without esophagitis (principal); K22.4 Dyskinesia of esophagus
CPT/HCPCS: 74220

== ENCOUNTER → 2022-02-26 | Outpatient (CLI) | payer BC ==
--- NOTE | 2022-02-27 08:34 | MM ---
Reason for Exam: Screening (asymptomatic). Last mammogram was performed 1 year(s) and 4 month(s) ago. Patient History: Menarche at age 15. First Full-Term at age 23. Postmenopausal. Colorectal cancer, age 59. Patient used Hormonal Contraceptives for 10 years. Maternal aunt had breast cancer. Maternal aunt had breast cancer. Risk Values: Rianna 5 year model risk: 1.2%. NCI Lifetime model risk: 6.7%. Prior Study Comparison: 05/22/2018 Bilateral Screening Mammogram, LOCATED WITHIN [facility]. 06/29/2019 Bilateral Screening Mammogram, LOCATED WITHIN [facility]. 10/20/2020 Bilateral Screening Mammogram, LOCATED WITHIN [facility]. Tissue Density: The breast tissue is almost entirely fat. Findings: Analyzed By CAD. There is no suspicious group of microcalcifications or new suspicious mass in either breast. Overall Assessment: Negative, BI-RAD 1 Management: Screening Mammogram of both breasts in 1 year. A clinical breast exam by your physician is recommended on an annual basis and results should be correlated with mammographic findings. [facility] will attempt to contact patient to return for supplemental views and ultrasound if indicated. Electronically signed and approved by: Julian Bates DO
== END | disposition home or self-care (01) ==
LOC: RADMAMWWP 11:11
PROVIDERS: ATTEND Family Medicine
DX: Z12.31 Encounter for screening mammogram for malignant neoplasm of breast (principal); Z78.0 Asymptomatic menopausal state; Z80.3 Family history of malignant neoplasm of breast
CPT/HCPCS: 77063; 77067

== ENCOUNTER → 2022-04-11 | Outpatient (CLI) | payer BC ==
[2022-04-11 15:45] VITALS: BP 125/85; PULSE 74; TEMP 98.1
--- NOTE | 2022-04-11 16:06 | P.BASOAP ---
Subjective Progress Note Date: 04/11/22 SHe reports trouble with ventral hernia. Wants to proceed with robotic ventral incisonal hernia. Objective - Vital Signs Vital signs: Vital Signs Temp 98.1 F 04/11/22 15:41 Pulse 74 04/11/22 15:41 Resp BP 125/85 04/11/22 15:41 Pulse Ox FiO2 Assessment/Plan Plan: Date: 04/11/22 Initial Weight: 108.862 kg Initial BMI: Current Weight: Current BMI: Type of Surgery: Total Volume in Band: Previous Volume: Volume Removed: Volume Added: Band Size:
== END ==
LOC: BARWHC3 15:33
PROVIDERS: ATTEND Surgery Plastic and Reconstructive Surgery
DX: E66.01 Morbid (severe) obesity due to excess calories (principal); Z88.5 Allergy status to narcotic agent; F17.200 Nicotine dependence, unspecified, uncomplicated; Z91.018 Allergy to other foods; Z91.041 Radiographic dye allergy status
CPT/HCPCS: 99211

== ENCOUNTER 2022-04-23 06:41 | Day surgery (SDC) | payer BC ==
[2022-04-20 12:56] VITALS: BMI 26.6
[~2022-04-23 06:41] MED LIST changes: +ACETAMINOPHEN TAB 500 MG TAB PO STA; +GABAPENTIN 300 MG CAP PO STA; +HEPARIN SODIUM,PORCINE/PF 5,000 UNIT/0.5 ML SYRINGE SQ PRN; +SCOPOLAMINE 1 MG/72 HR PATCH TRANSDERM STA; -SODIUM CHLORIDE 0.9% 500 ML 500 ML in EMPTY BAG 1 BAG IV PRN; -ZOLEDRONIC ACID 5 MG in SODIUM CHLORIDE 0.9% 100 ML IV NR
[2022-04-23] MEDS ORDERED: LACTATED RINGERS 1,000 ML IV ONE ×3 (07:16→11:45)
[2022-04-23] MEDS ORDERED: ONDANSETRON 4 MG/2 ML VIAL ONE ×2 (07:21→10:27)
[2022-04-23] MEDS ORDERED: DEXAMETHASONE SOD PHOSPHATE 4 MG/ML 1 ML VIAL IVP ONE (07:34)
--- NOTE | 2022-04-23 07:37 | P.GSHP ---
History of Present Illness H&P Date: 04/23/22 CHIEF COMPLAINT: Ventral incisional hernia. HISTORY OF PRESENT ILLNESS: The patient is a 61-year-old female who presents with swelling along the abdomen for over 1 year with pain and tenderness. Findings were consistent with ventral incisional hernia. Now she presents for further evaluation and management. PAST MEDICAL HISTORY: Please see list and reviewed. PAST SURGICAL HISTORY: Please see list and reviewed. MEDICATIONS: Please see list and reviewed. ALLERGIES: Please see list and reviewed. SOCIAL HISTORY: Please see list and reviewed. FAMILY HISTORY: No reports of Crohn disease or ulcerative colitis. REVIEW OF ORGAN SYSTEMS: CONSTITUTIONAL: No reports of fevers or chills. GI: Denies any blood in stools or constipation. HEENT: Denies any trouble with vision, hearing or nosebleeds. Has difficulty swallowing. LYMPHATIC: The patient denies any lumps and bumps around the neck. ENDOCRINE: Denies any thyroid disorders. Denies any blood sugar glucose intolerance. RESPIRATORY: Denies pneumonia. Denies any troubles with breathing or dyspnea on exertion. CARDIOVASCULAR: Denies any chest pain, palpitations, or recent heart attacks. GENITOURINARY: Denies any blood in urine or increased urinary frequency. MUSCULOSKELETAL: Has back pain, stiffness, joint arthritis. NEUROLOGIC: Denies any numbness or tingling along the distal extremities. No seizure disorders or headaches. PSYCHIATRIC: Has depression. No suidical ideation. HEMATOLOGIC: Denies any abnormal bleeding or bruising. BREASTS: Denies any breast lumps, pain or nipple discharge. PHYSICAL EXAM: VITAL SIGNS: Stable GENERAL: Well-developed pleasant female in no acute distress. HEENT: No scleral icterus. Extraocular movements grossly intact. Moist buccal mucosa. NECK: Supple without lymphadenopathy. CHEST: Unlabored respirations. Equal bilateral excursions. CARDIOVASCULAR: Regular rate and rhythm. Distal 2+ pulses. ABDOMEN: Soft, nondistended. Tender along the abdomen. Protuberant. MUSCULOSKELETAL: No clubbing, cyanosis, or edema. SKIN: Well perfused. PSYCH: Alert and oriented. No focal or lateralizing signs. ASSESSMENT: 1. Ventral incisional hernia. PLAN: 1. Recommend proceeding with robotic ventral hernia repair with mesh. 2. Benefits and risks of surgical intervention was discussed including possibility of open technique. 3. DVT prophylaxis. 4. Antibiotic prophylaxis. 5. She is elevated risk with prior multiple abdominal surgeries 6. Nutritional assessment for gastric sleebe 7. Non-narcotic pain managment reviewed. 8. Tobacco cessation and counseling performed. 9. She has glycemic control Past Medical History Past Medical History: GERD/Reflux Additional Past Medical History / Comment(s): FX RT HUMERUS-12/31/14; gastrointestinal tumor (GIST) 2020 History of Any Multi-Drug Resistant Organisms: None Reported Past Surgical History: Bariatric Surgery, Bladder Surgery, Section, Cholecystectomy, Hernia Repair, Orthopedic Surgery, Tonsillectomy, Tubal Ligation, Uterine Ablation Additional Past Surgical History / Comment(s): GASTRIC SLEEVE 03/2014. ORIF RT WRIST AND ANKLE W/PINS AND SCREWS. BLADDER SLING. FATTY BENIGN TUMOR REMOVED FROM BACK. COLONOSCOPY. EGD. PARAESOPHAGEAL HIATAL HERNIA REPAIR Past Anesthesia/Blood Transfusion Reactions: Motion Sickness, Postoperative Nausea & Vomiting (PONV) Additional Past Anesthesia/Blood Transfusion Reaction / Comment(s): mother PONV Past Psychological History: Bipolar Smoking Status: Former smoker Past Alcohol Use History: Occasional Additional Past Alcohol Use History / Comment(s): QUIT SMOKING BEGINNING OF 2014 Past Drug Use History: None Reported Additional Drug Use History / Comment(s): occ CBD oil - Past Family History Mother Family Medical History: No Reported History Medications and Allergies Home Medications Medication Instructions Recorded Confirmed Type valACYclovir HCL [Valacyclovir] 500 mg PO DAILY 01/06/15 04/20/22 History OXcarbazepine [Trileptal] 300 mg PO BID 01/20/20 04/20/22 History Biotin [Biotin Disolve] 3 tab PO DAILY 01/31/22 04/20/22 History Cholecalciferol (Vitamin D3) 125 mcg PO DAILY 01/31/22 04/20/22 History [Vitamin D3 (125 MCG = 5,000 IU)] Cyanocobalamin (Vitamin B-12) 2,500 mcg PO WEEKLY 01/31/22 04/20/22 History [Vitamin B-12] Sertraline [Zoloft] 50 mg PO DAILY 04/11/22 04/20/22 History Multivitamin [Multivitamins Adult 2 each PO DAILY 04/20/22 04/20/22 History Gummies] Allergies Allergy/AdvReac Type Severity Reaction Status Date / Time hydrocodone [From [place]] AdvReac Rapid Verified 04/23/22 07:29 Heart Rate orange AdvReac Rash/Hives Verified 04/23/22 07:29 ORANGE DYE AdvReac BLISTERS Uncoded 04/20/22 12:44 TO INSIDE AND OUTSIDE OF MOUTH
[2022-04-23] MEDS ORDERED: fentaNYL (PF) 50 MCG/1 ML VIAL IVP ONE (08:13)
[2022-04-23] MEDS ORDERED: MIDAZOLAM 2 MG/2 ML VIAL IVP ONE (08:13)
[2022-04-23 08:16] LABS: Basophils % (A) 0 %; Eosinophils # (A) 0.2 k/uL (0-0.7); Eosinophils % (A) 5 %; HCT 38.9 % (34.0-46.0); HGB 14.1 gm/dL (11.4-16.0); Lymphocytes # (A) 1.3 k/uL (1.0-4.8); Lymphocytes % (A) 24 %; MCH 34.4 pg (25.0-35.0); MCHC 36.3 g/dL (31.0-37.0); MCV 94.7 fL (80.0-100.0); Mean Platelet Volume 8.1; Monocytes # (A) 0.3 k/uL (0-1.0); Monocytes % (A) 6 %; Neutrophils # (A) 3.4 k/uL (1.3-7.7); Neutrophils % (A) 63 %; Platelet Count 252 k/uL (150-450); RDW 13.8 % (11.5-15.5); WBC 5.5 k/uL (3.8-10.6)
[2022-04-23] MEDS ORDERED: MIDAZOLAM 2 MG/2 ML VIAL ONE (08:40)
[2022-04-23] MEDS ORDERED: SUCCINYLCHOLINE CHLORIDE 200 MG/10 ML VIAL IV ONE (08:40)
[2022-04-23] MEDS ORDERED: LIDOCAINE 2% INJ 20 MG/ML (2 ML VIAL) ONE (08:40)
[2022-04-23] MEDS ORDERED: HYDROmorphone (PF) 1 MG/ML ONE (08:40)
[2022-04-23] MEDS ORDERED: SODIUM CHLORIDE 0.9% (PF) 10 ML VIAL ONE (08:40)
[2022-04-23] MEDS ORDERED: PROPOFOL 10 MG/ML 20 ML VIAL IV ONE (08:40)
[2022-04-23] MEDS ORDERED: ePHEDrine 50 MG/ML 1 ML VIAL ONE (08:40)
[2022-04-23] MEDS ORDERED: fentaNYL (PF) 50 MCG/ML 2 ML AMP ONE (08:40)
[2022-04-23] MEDS ORDERED: ROCURONIUM 10 MG/ML (5 ML VIAL) IV ONE (08:40)
[2022-04-23] MEDS ORDERED: WATER FOR INJECTION, STERILE 10 ML VIAL IV ONE (08:40)
[2022-04-23] MEDS ORDERED: PHENYLEPHRINE-0.9% NACL SYG 1,000 MCG/10 ML SYRINGE ONE (08:40)
[2022-04-23] MEDS ORDERED: NEOSTIGMINE 1 MG/ML 10 ML VIAL ONE (08:40)
[2022-04-23] MEDS ORDERED: ROPIVACAINE 5 MG/ML 30 ML VIAL ONE (08:40)
[2022-04-23] MEDS ORDERED: GLYCOPYRROLATE 0.2 MG/ML 2 ML VIAL ONE (08:40)
[2022-04-23] MEDS ORDERED: BUPIVACAIN-EPI 0.25%-1:200,000 30 ML VIAL SQ ONE (09:12)
[2022-04-23 10:31] VITALS: TEMP 97.6
[2022-04-23] MEDS ORDERED: ONDANSETRON 4 MG/2 ML VIAL IVP ONE (10:32)
--- NOTE | 2022-04-23 10:38 | P.ANPRN ---
Procedure Note - Anesthesia - Nerve Block Performed Bilateral Rectus Abdominis Time Out Performed: Yes (08:12) Date of Procedure: 04/23/22 Procedure Start Time: :12 Procedure Stop Time: : Location of Patient: PreOp Indication: Acute Post-Operative Pain, Requested by Surgeon (DR Washington) Sedation Type: Sedate with meaningful contact maintained Preparation: Sterile Prep Position: Supine Catheter: None Needle Types: Pajunk Needle Gauge: 21 Ultrasound used to visualize needle placement: Yes Ultrasound used to observe medication spread: Yes Injectate: 0.5% Ropivacaine (see comment for volume) (15cc +10CC PF Normal saline each side) Blood Aspirated: No Pain Paresthesia on Injection Noted: No Resistance on Injection: Normal Image Stored and Saved: Yes Events: Uneventful and Well Tolerated
[2022-04-23 10:42] VITALS: RESP 16
[2022-04-23] MEDS ORDERED: HYDROmorphone 0.5 MG/0.5 ML SYRINGE ONE ×2 (10:42→11:02)
[2022-04-23] MEDS ORDERED: HYDROmorphone 0.5 MG/0.5 ML SYRINGE IVP ONE ×2 (10:42→11:02)
[2022-04-23] MEDS ORDERED: KETOROLAC 15 MG/ML 1 ML VIAL IVP PRN (11:04)
--- NOTE | 2022-04-23 11:14 | P.OP ---
Date of Procedure: 04/23/22 Description of Procedure: SURGEON: JOEL العلي MD PREOPERATIVE DIAGNOSES: 1. Incarcerated incisional hernia, initial 2. History of gastric sleeve, bariatric status 3. Gastroesophageal reflux disease 4. Depressive disorder 5. Motion sickness 6. Postoperative nausea vomiting 7. Bipolar disorder POSTOPERATIVE DIAGNOSES: 1. Incarcerated incisional hernia, initial, 15 cm x 3 cm 2. History of gastric sleeve, bariatric status 3. Gastroesophageal reflux disease 4. Depressive disorder 5. Motion sickness 6. Postoperative nausea vomiting 7. Bipolar disorder 8. Severe intra-abdominal adhesions OPERATION: 1. Robotic-assisted da Xiao Xi laparoscopic lysis of adhesions over 30 minutes 2. Robotic-assisted da Xiao Xi laparoscopic repair of initial incarcerated incisional epigastric hernia 15 cm x 3 cm repaired with mesh, ventralight ST mesh 11.4 cm Anesthesia: GETA, regional, local Estimated Blood Loss (ml): 5 Pathology: None COMPLICATIONS: None. Operative Findings: 1. Multiple [place]one[place] cheese defect of 15 cm length by 3 cm with, xiphoid to below umbilicus 2. Largest defect 3 x 3 cm, lower midline 3. Fascia repaired using #1 V-lock suture 4. Fascial imbrication for closure of large incisional hernia defects 15 x 3 cm 5. 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 Surgical intervention with laparoscopic versus robotic and open techniques were reviewed. Placement of mesh was also reviewed. Benefits and risks were thoroughly described. Informed consent was obtained. DESCRIPTION OF PROCEDURE: The patient was brought into the operating room and laid in supine position. After general induction, the abdomen had been prepped and draped in standard sterile fashion. Ioban draping was also placed. Prior to incision, a timeout protocol was confirmed with surgical team regarding the patient's name including procedures to be performed. The robot was primed prior to the procedure. A field block using local anesthetic was placed along hernia site including the proposed port sites. Initial incision was made with an #11 blade along the left upper quadrant. A 0 degree 5 mm laparoscopic trocar entry was performed and insufflated. Three 8 mm ports were placed along the left lateral abdominal wall under direct localization after exchanging the 5-mm for an 8 mm port. Placements of the ports were 15 cm from the target anatomy and 10 cm apart. An accessory 12 mm port was placed at the left upper abdomen for exchange of mesh including sutures. The da Xiao Xi robot was previously primed, prepped and draped then docked from the right side of the patient onto the left side of the patient. I then sat at the robot Da Xiao Xi console where working arms of the robot including Bovie cautery connected to robotic scissors, needle lifter/driver, and graspers placed by the retail administrative assistant. Moderate abdominal adhesions involving the midline epigastrium was identified. Extensive lysis of adhesions using cautery with scissors and vessel sealer including blunt dissection was used for over 30 minutes to clean the fascia and exposure of multiple hernias. Incarcerated omental contents were found along the upper midline defect including lower abdomen. Multiple [place] cheese defects were found with length of hernia 15 cm and 3 cm with measured by ruler. The defects were reduced with preperitoneal fat including greater omentum. The incarcerated contents were reduced as the peritoneal fat was cleaned from the abdominal wall. The hernia defects were oversewn using #1 nonabsorbable V- lock suture with fascial imbrication x 2. Next, ventralight ST mesh 11.4 cm was placed with the rough side towards the abdominal wall as to reinforce the largest lower abdominal defect which was closed with 3 x 3 cm . 2-0 V-LOC 9 inch absorbable sutures were used to fixate the mesh. A final endoscopic imaging was obtained. All instruments and pneumoperitoneum were evacuated from the abdominal cavity. The da Xiao Xi robot was undocked from the patient. I re-scrubbed into the case for closure of incisions. The fascia of the 12-mm port was probed and less than 8-mm in size. The incisions were reapproximated using 4-0 Monocryl in an interrupted subcuticular fashion. Liquid glue was applied to the skin after cleansing the skin with normal saline and dilute hydrogen peroxide. An abdominal binder was placed. At the end of the procedure, needle, sponge, and instrument count had been verified correct by surgical elastic knitter hand frame. The patient was taken to the postanesthesia care unit in stable condition. Plan - Discharge Summary Discharge Rx Participant: No New Discharge Prescriptions: New Cyclobenzaprine [Flexeril] 10 mg PO TID #30 tab Acetaminophen Tab [Tylenol Tab] 1,000 mg PO Q6HR PRN #30 tablet PRN Reason: Pain Simethicone [Gas-X] 125 mg PO AC-TID PRN #20 capsule PRN Reason: Pain Continue valACYclovir HCL [Valacyclovir] 500 mg PO DAILY OXcarbazepine [Trileptal] 300 mg PO BID Cyanocobalamin (Vitamin B-12) [Vitamin B-12] 2,500 mcg PO WEEKLY Multivitamin [Multivitamins Adult Gummies] 2 each PO DAILY Cholecalciferol (Vitamin D3) [Vitamin D3 (125 MCG = 5,000 IU)] 125 mcg PO DAILY Biotin [Biotin Disolve] 3 tab PO DAILY Sertraline [Zoloft] 50 mg PO DAILY Discharge Medication List valACYclovir HCL [Valacyclovir] 500 mg PO DAILY 01/06/15 [History] OXcarbazepine [Trileptal] 300 mg PO BID 01/20/20 [History] Biotin [Biotin Disolve] 3 tab PO DAILY 01/31/22 [History] Cholecalciferol (Vitamin D3) [Vitamin D3 (125 MCG = 5,000 IU)] 125 mcg PO DAILY 01/31/22 [History] Cyanocobalamin (Vitamin B-12) [Vitamin B-12] 2,500 mcg PO WEEKLY 01/31/22 [History] Sertraline [Zoloft] 50 mg PO DAILY 04/11/22 [History] Multivitamin [Multivitamins Adult Gummies] 2 each PO DAILY 04/20/22 [History] Acetaminophen Tab [Tylenol Tab] 1,000 mg PO Q6HR PRN #30 tablet 04/23/22 [Rx] Cyclobenzaprine [Flexeril] 10 mg PO TID #30 tab 04/23/22 [Rx] Simethicone [Gas-X] 125 mg PO AC-TID PRN #20 capsule 04/23/22 [Rx] Follow up [facility]Ref[facility] [place] [facility] [place] 04/27/22 9:00 am Patient Instructions/Handouts: Laparoscopic Herniorrhaphy (IP), Incisional Hernia (DC), Ventral Hernia Repair (DC) Activity/Diet/Wound Care/Special Instructions: Using antibacterial soap. No lifting over 4 pounds 4 weeks, May 24August shower. No bathtub soaks for 2 weeks, May 07 Wear abdominal binder daily for comfort except for showering. Use ice along incisions for today to prevent swelling. Take tylenol, flexeril simethicone scheduled for 3 days for best pain relief Discharge Disposition: HOME SELF-CARE
[2022-04-23 11:21] VITALS: PULSE 75
[2022-04-23] MEDS ORDERED: CYCLOBENZAPRINE 10 MG TAB PO STA (11:32)
[2022-04-23 11:35] VITALS: BP 127/75
== END 2022-04-23 12:19 | disposition home or self-care (01) ==
LOC: OR 06:41
PROVIDERS: ATTEND Surgery Plastic and Reconstructive Surgery
DX: K43.0 Incisional hernia with obstruction, without gangrene (principal); G89.18 Other acute postprocedural pain; K21.9 Gastro-esophageal reflux disease without esophagitis; K91.0 Vomiting following gastrointestinal surgery; F31.9 Bipolar disorder, unspecified; K66.0 Peritoneal adhesions (postprocedural) (postinfection); F10.90 Alcohol use, unspecified, uncomplicated; Z98.84 Bariatric surgery status; Z98.891 History of uterine scar from previous surgery; Z90.49 Acquired absence of other specified parts of digestive tract; Z90.89 Acquired absence of other organs; Z98.890 Other specified postprocedural states; Z98.51 Tubal ligation status; Z87.891 Personal history of nicotine dependence; Z79.899 Other long term (current) drug therapy; Z88.5 Allergy status to narcotic agent; Z91.041 Radiographic dye allergy status; K43.6 Other and unspecified ventral hernia with obstruction, without gangrene
CPT/HCPCS: 64999; 85025; 49596; C1781; J2250; J0330; J1100; J2710; J0690; J2405; J3010 ×2; J1170 ×2; J2795; J2370; J2704; J1644; J2001

== ENCOUNTER → 2022-04-27 | Outpatient (CLI) | payer BC ==
[2022-04-27 09:32] VITALS: BP 126/78; PULSE 91; TEMP 98.1; BMI 26.9
--- NOTE | 2022-04-27 18:37 | P.BASOAP ---
Subjective Progress Note Date: 04/27/22 Clinically don't well. No recurrent incisional hernia. Pain control. Abdominal binder repositioned. No infection or cellulitis. Follow-up in 2 weeks. Lifting restrictions of 4 pounds for 4 weeks reviewed. Overall, patient please with cosmetic result. Objective - Vital Signs Vital signs: Vital Signs Temp 98.1 F 04/27/22 09:28 Pulse 91 04/27/22 09:28 Resp BP 126/78 04/27/22 09:28 Pulse Ox FiO2 Intake & Output 04/26/22 04/27/22 04/27/22 18:59 06:59 18:59 Weight 75.75 kg Assessment/Plan Plan: Date: 04/27/22 Initial Weight: 108.862 kg Initial BMI: 38.7 Current Weight: 75.75 kg Current BMI: 26.9 Type of Surgery: Total Volume in Band: Previous Volume: Volume Removed: Volume Added: Band Size:
== END ==
LOC: BARWHC3 08:47
PROVIDERS: ATTEND Surgery Plastic and Reconstructive Surgery
DX: E66.01 Morbid (severe) obesity due to excess calories (principal); Z68.26 Body mass index [BMI] 26.0-26.9, adult; Z88.5 Allergy status to narcotic agent; Z91.018 Allergy to other foods; Z91.041 Radiographic dye allergy status; F17.200 Nicotine dependence, unspecified, uncomplicated
CPT/HCPCS: 99211

== ENCOUNTER → 2022-05-16 | Outpatient (CLI) | payer BC ==
[2022-05-16 13:08] VITALS: BP 115/84; PULSE 94; TEMP 97.9; BMI 26.4
--- NOTE | 2022-05-16 14:12 | P.BASOAP ---
Subjective Progress Note Date: 05/16/22 Patient is an extremely well from her ventral hernia repair. She is 4 weeks out. May resume activities. She is also to restrictions. At this time, patient may follow up for panniculectomy at another time. Also excellent weight loss of 3 pounds from last visit. She feels well. May wear abdominal binder as needed. Objective - Vital Signs Vital signs: Vital Signs Temp 97.9 F 05/16/22 13:04 Pulse 94 05/16/22 13:04 Resp BP 115/84 05/16/22 13:04 Pulse Ox FiO2 Intake & Output 05/15/22 05/16/22 05/16/22 18:59 06:59 18:59 Weight 74.389 kg Assessment/Plan Plan: Date: 05/16/22 Initial Weight: 108.862 kg Initial BMI: 38.7 Current Weight: 74.389 kg Current BMI: 26.4 Type of Surgery: Total Volume in Band: Previous Volume: Volume Removed: Volume Added: Band Size:
== END ==
LOC: BARWHC3 12:50
PROVIDERS: ATTEND Surgery Plastic and Reconstructive Surgery
DX: E66.01 Morbid (severe) obesity due to excess calories (principal); Z68.26 Body mass index [BMI] 26.0-26.9, adult; Z88.5 Allergy status to narcotic agent; Z91.018 Allergy to other foods; Z91.048 Other nonmedicinal substance allergy status; F17.200 Nicotine dependence, unspecified, uncomplicated
CPT/HCPCS: 99211

== ENCOUNTER → 2022-12-19 | Outpatient (CLI) | payer BC ==
[~2022-12-19] MED LIST changes: -ACETAMINOPHEN TAB 500 MG TAB PO STA; -GABAPENTIN 300 MG CAP PO STA; -HEPARIN SODIUM,PORCINE/PF 5,000 UNIT/0.5 ML SYRINGE SQ PRN; -SCOPOLAMINE 1 MG/72 HR PATCH TRANSDERM STA; +SODIUM CHLORIDE 0.9% 500 ML 500 ML in EMPTY BAG 1 BAG IV PRN; +ZOLEDRONIC ACID 5 MG in SODIUM CHLORIDE 0.9% 100 ML IV NR
[2022-12-19 13:52] VITALS: BP 127/86; RESP 16; TEMP 98.2
== END ==
LOC: PROCWHC3 13:04
PROVIDERS: ATTEND Family Medicine
DX: M81.0 Age-related osteoporosis without current pathological fracture (principal)
CPT/HCPCS: 96365; J3489

== ENCOUNTER → 2023-09-27 | Outpatient (CLI) | payer BC ==
--- NOTE | 2023-09-30 13:14 | MM ---
Reason for Exam: Screening (asymptomatic). Last mammogram was performed 1 year(s) and 7 month(s) ago. Patient History: Menarche at age 15. First Full-Term at age 23. Postmenopausal. Colorectal cancer, age 59. Patient used Hormonal Contraceptives for 10 years. Maternal aunt had breast cancer. Maternal aunt had breast cancer. Risk Values: Rianna 5 year model risk: 1.3%. NCI Lifetime model risk: 6.4%. Prior Study Comparison: 06/29/2019 Bilateral Screening Mammogram, [facility]. 10/20/2020 Bilateral Screening Mammogram, [facility]. 02/26/2022 Bilateral MG 3D screening mammo w/cad, [facility]. Tissue Density: The breasts are heterogeneously dense, which may obscure small masses. Findings: Analyzed By CAD. There is no suspicious group of microcalcifications or new suspicious mass in either breast. Overall Assessment: Benign, BI-RAD 2 Management: Screening Mammogram of both breasts in 1 year. . Patient should continue monthly self-breast exams. A clinical breast exam by your physician is recommended on an annual basis. This exam should not preclude additional follow-up of suspicious palpable abnormalities. Note on Rianna scores and lifetime risk: 1. A Rianna score greater than 3% is considered moderate risk. If this is the case, consider specialist referral to assess eligibility for a risk reducing agent. 2. If overall lifetime risk for the development of breast cancer is 20% or higher, the patient may qualify for future screening with alternating mammogram and breast MRI. Electronically signed and approved by: Davi Thomson M.D. Radiologis
== END | disposition home or self-care (01) ==
LOC: RADMAMWWP 10:54
PROVIDERS: ATTEND Family Medicine
DX: Z12.31 Encounter for screening mammogram for malignant neoplasm of breast (principal); Z78.0 Asymptomatic menopausal state; Z80.3 Family history of malignant neoplasm of breast
CPT/HCPCS: 77063; 77067

== ENCOUNTER → 2024-02-26 | Outpatient (CLI) | payer BC ==
[~2024-02-26] MED LIST changes: -ZOLEDRONIC ACID 5 MG in SODIUM CHLORIDE 0.9% 100 ML IV NR
[2024-02-26 13:58] VITALS: BP 136/83; PULSE 86; RESP 16; TEMP 98.1
[2024-02-26] MEDS: SODIUM CHLORIDE 0.9% 250 ML in EMPTY BAG 1 BAG IV PRN (13:58)
[2024-02-26] MEDS: ZOLEDRONIC ACID 5 MG in SODIUM CHLORIDE 0.9% 100 ML IV NR (13:59)
== END ==
LOC: PROCWHC3 13:16
PROVIDERS: ATTEND Family Medicine
DX: M81.0 Age-related osteoporosis without current pathological fracture (principal)
CPT/HCPCS: 96365; J3489

== ENCOUNTER → 2024-11-05 | Outpatient (CLI) | payer BC ==
--- NOTE | 2024-11-06 07:49 | MM ---
Reason for Exam: Screening (asymptomatic). Last mammogram was performed 1 year(s) and 1 month(s) ago. Patient History: Menarche at age 15. First Full-Term at age 23. Postmenopausal. Patient has history of breast feeding. Colorectal cancer, age 59. Patient used Hormonal Contraceptives for 10 years. Maternal aunt had breast cancer. Maternal aunt had breast cancer. Risk Values: Rianna 5 year model risk: 1.4%. NCI Lifetime model risk: 6.2%. Prior Study Comparison: 10/20/2020 Bilateral Screening Mammogram, [facility]. 02/26/2022 Bilateral MG 3D screening mammo w/cad, [facility]. 09/27/2023 Bilateral MG 3D screening mammo w/cad, [facility]. Tissue Density: There are scattered areas of fibroglandular density. Findings: Analyzed By CAD. There is no suspicious group of microcalcifications or new suspicious mass in either breast. Stable chronic nodularity Overall Assessment: Benign, BI-RAD 2 Management: Screening Mammogram of both breasts in 1 year. . Patient should continue monthly self-breast exams. A clinical breast exam by your physician is recommended on an annual basis. This exam should not preclude additional follow-up of suspicious palpable abnormalities. Note on Rianna scores and lifetime risk: 1. A Rianna score greater than 3% is considered moderate risk. If this is the case, consider specialist referral to assess eligibility for a risk reducing agent. 2. If overall lifetime risk for the development of breast cancer is 20% or higher, the patient may qualify for future screening with alternating mammogram and breast MRI. [facility], , 11/06/2024 7:46 AM. Electronically signed and approved by: Raffaele Richter M.D. Radiologis
--- NOTE | 2024-11-06 08:47 | BD ---
EXAMINATION TYPE: Axial Bone Density DATE OF EXAM: 11/05/2024 CLINICAL HISTORY: 64 years old Female. ICD-10 CODE: M85.88 DISORDER OF BONE , Additional History: Height: 66" Weight: 187lbs FRAX RISK QUESTIONS: Alcohol (3 or more units per day): No Family History (Parent hip fracture): No Glucocorticoids (More than 3mos): No (Ex: prednisone, prednisolone, methylprednisolone, dexamethasone, and hydrocortisone). History of Fracture in Adulthood: Yes, patient states she has a disease that causes her bones to shat ter when fractured Secondary Osteoporosis: 1. Type 1 Diabetes: No 2. Hyperthyroidism: No 3. Menopause before 45: Yes 4. Malnutrition: No 5. Chronic liver disease: No Rheumatoid Arthritis: No Current Tobacco Use: No RISK FACTORS HISTORY OF: Hip Fracture (Right/Left): No Spine Fracture: No History of Wrist Fracture: No Surgery to Spine/Hip(right/left)/Wrist (right/left): No MEDICATIONS: Thyroid Medications: No Osteoporosis Medications: Yes Which medication: Reclast How Long: Last infusion was around 01/2024 EXAM MEASUREMENTS: Bone mineral densitometry was performed using the [employer] System. Bone mineral density as measured about the Lumbar spine is: ----- L1-L4(G/cm2): 1.236 T Score Values are as follows: ----- L1: -1.0 ----- L2: 1.2 ----- L3: 1.3 ----- L4: 0.2 ----- L1-L4: 0.5 Z Score Values are as follows: ----- L1: -0.3 ----- L2: 1.9 ----- L3: 2.0 ----- L4: 0.9 ----- L1-L4: 1.2 Unable to compare to 2019 study, no images were available (Per last report 05/22/2018 Osteopenia, T Sc ore between -2.5 and -1). . Bone mineral density about the R hip (g/cm2): 0.830 Bone mineral density about the L hip (g/cm2): 0.860 T Score values are as follows: -----R Neck: -1.7 -----L Neck: -1.5 -----R Total: -1.4 -----L Total: -1.2 Z Score values are as follows: -----R Neck: -0.8 -----L Neck: -0.6 -----R Total: -0.8 -----L Total: -0.6 Unable to compare to 2019 study, no images were available (Per last report 05/22/2018 Osteopenia, T Sc ore between -2.5 and -1). FRAX%s: The graph provided illustrates a 15.1% chance for a major osteoporotic fx and a 1.7% chance f or the hips probability for fx in 10 years time. IMPRESSION: Osteopenia (T Score between -2.5 and -1). There is slightly increased risk of fracture and the patient may be considered for treatment. Re-Screen 2-5 years. NOTE: T-SCORE=SD OF THE YOUNG ADULT MEAN. [facility], , 11/06/2024 8:45 AM
== END | disposition home or self-care (01) ==
LOC: RADMAMWWP 15:28
PROVIDERS: ATTEND Family Medicine
DX: Z12.31 Encounter for screening mammogram for malignant neoplasm of breast (principal); R92.323 Mammographic fibroglandular density, bilateral breasts; M85.89 Other specified disorders of bone density and structure, multiple sites; Z92.0 Personal history of contraception; Z78.0 Asymptomatic menopausal state; Z80.3 Family history of malignant neoplasm of breast
CPT/HCPCS: 77063; 77067; 77080